=== PATIENT | female | born 1970 | race Caucasian/White ===

== ENCOUNTER → 2016-06-17 | Outpatient (CLI) | payer MEDICARE, MEDICAID ==
[2016-06-17 10:28] LABS: BASO % 0.3 % (0.0-1.0); EOS # 0.1 K/mm3 (0.0-0.50); EOS % 0.7 % (0.0-3.0); LYMPH # 3.5 K/mm3 (1.5-4.5); LYMPH % 21.5 % (24.0-44.0); MEAN CORPUSCULAR HEMOGLOBIN 30.9 pg (27.0-33.0); MEAN CORPUSCULAR HGB CONC 32.5 g/dl (32.0-36.5); MEAN CORPUSCULAR VOLUME 95.3 fl (80.0-96.0); MONO # 0.6 K/mm3 (0.0-0.8); MONO % 3.5 % (0.0-5.0); NEUTROPHILS # 11.7 K/mm3 (1.8-7.7); NEUTROPHILS % 72.5 % (36.0-66.0); RED CELL DISTRIBUTION WIDTH 12.3 % (11.5-14.5); WHITE BLOOD COUNT 16.1 K/mm3 (4.0-10.0)
--- NOTE | 2016-06-17 10:37 | REP ---
Chest x-ray: Two views. History: Acute bronchitis. Comparison study January 13, 2015. Findings: The lungs remain well inflated and clear. Pleural angles are sharp. Heart size is normal. Pulmonary vasculature is not increased. No significant bony abnormality is seen. Pulmonary vasculature is not increased. Impression: Negative chest x-ray. Signed by Jacob Nieves MD 06/17/2016 12:52 P
== END ==
LOC: M LAB 10:00
PROVIDERS: ATTEND Physician Assistant Medical
DX: R41.3 Other amnesia (principal); J20.9 Acute bronchitis, unspecified

== ENCOUNTER → 2016-07-25 | Outpatient (CLI) | payer MEDICARE, MEDICAID ==
[2016-07-25 17:13] LABS: BASO % 0.5 % (0.0-1.0); EOS # 0.1 K/mm3 (0.0-0.50); EOS % 1.1 % (0.0-3.0); LARGE UNSTAINED CELL # 0.2 K/mm3 (0.0-0.4); LARGE UNSTAINED CELL % 1.6 % (0.0-4.0); LYMPH # 2.9 K/mm3 (1.5-4.5); LYMPH % 27.7 % (24.0-44.0); MEAN CORPUSCULAR HEMOGLOBIN 31.4 pg (27.0-33.0); MEAN CORPUSCULAR HGB CONC 32.4 g/dl (32.0-36.5); MEAN CORPUSCULAR VOLUME 96.9 fl (80.0-96.0); MONO # 0.4 K/mm3 (0.0-0.8); NEUTROPHILS # 6.8 K/mm3 (1.8-7.7); NEUTROPHILS % 65.1 % (36.0-66.0); PLATELET COUNT, AUTOMATED 311 k/mm3 (150-450); RED CELL DISTRIBUTION WIDTH 12.5 % (11.5-14.5); WHITE BLOOD COUNT 10.5 K/mm3 (4.0-10.0)
[2016-07-25 18:09] LABS: FOLATE 14.1 NG/ML
[2016-07-25 18:13] LABS: ALBUMIN 3.6 GM/DL (3.2-5.2); ALBUMIN/GLOBULIN RATIO 1.16 (1.00-1.93); BILIRUBIN,TOTAL 0.3 MG/DL (0.2-1.0); CALCIUM LEVEL 8.9 MG/DL (8.5-10.1); CREATININE FOR GFR 1.16 MG/DL (0.55-1.02); GLOMERULAR FILTRATION RATE 53.1 (>58); PHOSPHORUS LEVEL 3.3 MG/DL (2.5-4.9); POTASSIUM SERUM 4.5 MEQ/L (3.5-5.1); TOTAL PROTEIN 6.7 GM/DL (6.4-8.2)
[2016-07-25 21:27] LABS: ERYTHROCYTE SEDIMENTATION RATE 35 mm/hr (0-20)
== END ==
LOC: M SMT 11:13
PROVIDERS: ATTEND Physician Assistant Medical
DX: R41.3 Other amnesia (principal)

== ENCOUNTER → 2016-08-18 | Outpatient (CLI) | payer MEDICARE, MEDICAID ==
[2016-08-18 19:03] LABS: TOTAL PROTEIN 6.6 GM/DL (6.4-8.2)
[2016-08-21 00:06] LABS: Lyme Disease IgG/IgM Antibodie <0.91 ISR (0.00-0.90); Lyme Disease IgM Ab Quantitati <0.80 index (0.00-0.79)
== END ==
LOC: M SMT 12:01
PROVIDERS: ATTEND Physician Assistant Medical
DX: R70.0 Elevated erythrocyte sedimentation rate (principal)

== ENCOUNTER → 2016-11-01 | Outpatient (CLI) | payer MEDICARE, MEDICAID | LOC: M SMT 11:05 | PROVIDERS: ATTEND Physician Assistant Medical | DX: R76.8 Other specified abnormal immunological findings in serum (principal) ==

== ENCOUNTER → 2016-12-05 | Outpatient (CLI) | payer MEDICARE, MEDICAID ==
[~2016-12-05] MED LIST: ASPI81TA85 PO; AZIT-12 PO; BENZ100C5; BREO1INH; DICY20TA11; LIPI20TA PO; LISI-542 PO; LORA10TA2 PO; MELO7.5T7 PO; MONT10TA2 PO; NORT10CA2; OMEP40CA2 PO; PRED20TA PO; PROAAER10; VITA1CAP40; ZITHTAB PO
--- NOTE | 2016-12-05 15:58 | REP ---
HISTORY: COPD. COMPARISON: Multiple, the latest 06/17/2016. The cardiomediastinal silhouette is unchanged. The heart is not enlarged. Subtle opacities have developed in the left lung base. The pleural angles are sharp. There is no change in the osseous structures. IMPRESSION: Subtle left basilar opacities probably representing discoid subsegmental atelectatic change, however, followup to resolution is recommended along with clinical correlation. Signed by Olman Bautista DO 12/06/2016 11:29 A
[2016-12-07 00:07] LABS: Lyme Disease IgG/IgM Antibodie <0.91 ISR (0.00-0.90); Lyme Disease IgM Ab Quantitati <0.80 index (0.00-0.79)
[2016-12-07 10:27] LABS: ALBUMIN % 57.6 % (55.8-66.1)
[2016-12-07 10:28] LABS: ALBUMIN 4.03 GM/DL (3.29-5.55); GAMMA GLOBULIN % 12.8 % (11.1-18.8)
== END ==
LOC: M SMT 08:51
PROVIDERS: ATTEND Physician Assistant Medical
DX: M13.80 Other specified arthritis, unspecified site (principal); J44.9 Chronic obstructive pulmonary disease, unspecified

== ENCOUNTER 2017-01-11 19:39 | Emergency (ER) | payer MEDICARE, MEDICAID ==
[~2017-01-11] VITALS: Ht 165.1 cm; Wt 72.3 kg
[2017-01-11] MEDS ORDERED: PRED20TA PO (19:54)
[2017-01-11] MEDS ORDERED: MONT10TA2 PO (19:54)
[2017-01-11] MEDS ORDERED: PROAAER10 (19:54)
[2017-01-11] MEDS ORDERED: NORT10CA2 (19:54)
[2017-01-11] MEDS ORDERED: DICY20TA11 (19:54)
[2017-01-11] MEDS ORDERED: OMEP40CA2 PO (19:54)
[2017-01-11] MEDS ORDERED: LIPI20TA PO (19:54)
[2017-01-11] MEDS ORDERED: BENZ100C5 (19:54)
[2017-01-11] MEDS ORDERED: LORA10TA2 PO (19:54)
[2017-01-11] MEDS ORDERED: VITA1CAP40 (19:54)
[2017-01-11] MEDS ORDERED: MELO7.5T7 PO (19:54)
[2017-01-11] MEDS ORDERED: BREO1INH (19:54)
[2017-01-11] MEDS ORDERED: LISI-542 PO (19:54)
[2017-01-11] MEDS ORDERED: ASPIRIN 81 MG CHEW TABLET PO ONE (20:45)
[2017-01-11] MEDS ORDERED: NS 1,000 ML IV ONE (20:45)
[2017-01-11] MEDS ORDERED: IPRATROPIUM 0.5MG/ALBUTEROL 2.5MG INH SOL UD 3ML (DUONEB)(J7620) NEB ONE (20:45)
[2017-01-11 20:52] LABS: BASO % 0.5 % (0.0-1.0); EOS # 0.2 K/mm3 (0.0-0.50); EOS % 2.5 % (0.0-3.0); LARGE UNSTAINED CELL # 0.2 K/mm3 (0.0-0.4); LARGE UNSTAINED CELL % 2.5 % (0.0-4.0); LYMPH # 3.9 K/mm3 (1.5-4.5); LYMPH % 45.8 % (24.0-44.0); MEAN CORPUSCULAR HEMOGLOBIN 32.3 pg (27.0-33.0); MEAN CORPUSCULAR HGB CONC 34.5 g/dl (32.0-36.5); MEAN CORPUSCULAR VOLUME 93.6 fl (80.0-96.0); MONO # 0.5 K/mm3 (0.0-0.8); MONO % 5.9 % (0.0-5.0); NEUTROPHILS # 3.7 K/mm3 (1.8-7.7); NEUTROPHILS % 42.7 % (36.0-66.0); PLATELET COUNT, AUTOMATED 372 k/mm3 (150-450); WHITE BLOOD COUNT 8.6 K/mm3 (4.0-10.0)
[2017-01-11 20:53] LABS: VENOUS BASE EXCESS -0.9 (-2.0-2.0); VENOUS O2 SATURATION 74.3 % (60.0-80.0); VENOUS PARTIAL PRESSURE O2 36.7 mmHg (30.0-50.0); VENOUS STANDARD HCO3 23.2 MEQ/L; VENOUS TOTAL CO2 25.5 MEQ/L (24.0-28.0)
[2017-01-11 21:07] LABS: ANION GAP 10 MEQ/L (8-16); BLOOD UREA NITROGEN 10 MG/DL (7-18); CALCIUM LEVEL 9.2 MG/DL (8.5-10.1); CARBON DIOXIDE LEVEL 25 MEQ/L (21-32); CHLORIDE LEVEL 109 MEQ/L (98-107); GLOMERULAR FILTRATION RATE 56.4 (>58); GLUCOSE, FASTING 104 MG/DL (70-105); SODIUM LEVEL 144 MEQ/L (136-145)
--- NOTE | 2017-01-11 21:45 | ECGEPIP ---
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
[2017-01-11 23:44] VITALS: BP 133/64
[2017-01-11] MEDS ORDERED: AZITHROMYCIN 250 MG TAB PO ONE (23:45)
[2017-01-11] MEDS ORDERED: AZIT-12 PO (23:45)
[2017-01-12] MEDS ORDERED: ZITHTAB PO (00:09)
--- NOTE | 2017-01-12 08:04 | REP ---
Clinical: Chest pain . Comparison: 12/05/2016 . Technique: PA and lateral. Findings: The mediastinum and cardiac silhouette are normal. The lung bernabe are clear and without acute consolidation, effusion, or pneumothorax. The skeletal structures are intact and normal. Impression: 1. No acute cardiopulmonary process. Signed by Link Law MD 01/12/2017 07:55 A
== END 2017-01-12 00:11 | disposition home or self-care (01) ==
LOC: M ED 19:39
DX: J40 Bronchitis, not specified as acute or chronic (principal); I10 Essential (primary) hypertension; J44.9 Chronic obstructive pulmonary disease, unspecified; K21.9 Gastro-esophageal reflux disease without esophagitis; G43.909 Migraine, unspecified, not intractable, without status migrainosus; Z79.899 Other long term (current) drug therapy; Z79.82 Long term (current) use of aspirin; Z79.51 Long term (current) use of inhaled steroids; F17.210 Nicotine dependence, cigarettes, uncomplicated

== ENCOUNTER 2017-01-30 09:10 | Emergency (ER) | payer MEDICARE, MEDICAID ==
[~2017-01-30] VITALS: Ht 165.1 cm; Wt 71.2 kg
[~2017-01-30 09:10] MED LIST changes: -ASPI81TA85 PO
[2017-01-30 10:01] LABS: INR 1.08
[2017-01-30] MEDS ORDERED: PERCOCET 5MG/325MG TAB PO ONE (10:15)
[2017-01-30] MEDS ORDERED: ASPIRIN 81 MG CHEW TABLET PO ONE (10:15)
--- NOTE | 2017-01-30 10:18 | REP ---
PORTABLE CHEST, SINGLE VIEW: COMPARISON: 01/11/2017. There is no evidence of acute infiltrate. No pleural effusion is seen. The heart is normal in size. The mediastinal silhouette is unremarkable. The visualized osseous structures are intact. IMPRESSION: No acute pulmonary disease. Signed by Valentin Lozano MD 01/30/2017 05:39 P
[2017-01-30 10:21] LABS: ALBUMIN 3.3 GM/DL (3.2-5.2); ALBUMIN/GLOBULIN RATIO 0.85 (1.00-1.93); ALKALINE PHOSPHATASE 76 U/L (45-117); ALT/SGPT 16 U/L (12-78); ANION GAP 7 MEQ/L (8-16); AST/SGOT 13 U/L (15-37); BILIRUBIN,DIRECT 0.1 MG/DL (0.0-0.2); BILIRUBIN,TOTAL 0.4 MG/DL (0.2-1.0); BLOOD UREA NITROGEN 8 MG/DL (7-18); CALCIUM LEVEL 8.4 MG/DL (8.5-10.1); CARBON DIOXIDE LEVEL 27 MEQ/L (21-32); CHLORIDE LEVEL 107 MEQ/L (98-107); CREATININE FOR GFR 1.08 MG/DL (0.55-1.02); GLOMERULAR FILTRATION RATE 57.6 (>58); GLUCOSE, FASTING 97 MG/DL (70-105); POTASSIUM SERUM 3.7 MEQ/L (3.5-5.1); SODIUM LEVEL 141 MEQ/L (136-145); TOTAL PROTEIN 7.2 GM/DL (6.4-8.2)
[2017-01-30 10:30] LABS: BASO % 0.3 % (0.0-1.0); EOS # 0.1 10^3/uL (0.0-0.50); EOS % 0.6 % (0.0-3.0); LYMPH # 3.2 10^3/uL (1.5-4.5); LYMPH % 21.1 % (24.0-44.0); MEAN CORPUSCULAR HEMOGLOBIN 31.4 pg (27.0-33.0); MEAN CORPUSCULAR VOLUME 95.2 fl (80.0-96.0); MONO % 6.3 % (0.0-5.0); NEUTROPHILS # 10.9 10^3/uL (1.8-7.7); NEUTROPHILS % 71.4 % (36.0-66.0); PLATELET COUNT, AUTOMATED 316 10^3/uL (150-450); RED CELL DISTRIBUTION WIDTH 12.2 % (11.5-14.5); WHITE BLOOD COUNT 15.2 10^3/uL (4.0-10.0)
[2017-01-30] MEDS ORDERED: ASPI81TA85 PO (12:49)
[2017-01-30 13:02] VITALS: BP 151/85
--- NOTE | 2017-01-30 18:06 | ECGEPIP ---
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
== END 2017-01-30 13:09 | disposition home or self-care (01) ==
LOC: M ED 09:10
DX: R07.89 Other chest pain (principal); I10 Essential (primary) hypertension; E78.5 Hyperlipidemia, unspecified; F33.9 Major depressive disorder, recurrent, unspecified; F17.210 Nicotine dependence, cigarettes, uncomplicated; Z79.899 Other long term (current) drug therapy; Z79.51 Long term (current) use of inhaled steroids; Z79.52 Long term (current) use of systemic steroids; Z82.49 Family history of ischemic heart disease and other diseases of the circulatory system

== ENCOUNTER → 2017-02-07 | Outpatient (CLI) | payer MEDICARE, MEDICAID ==
[~2017-02-07] MED LIST changes: +ASPI81TA85 PO; +ISOVUE-370 76% 100ML VIAL (Q9967) As Ordered ONE
--- NOTE | 2017-02-07 17:50 | REP ---
CT of the chest with IV contrast: Comparison is 10/15/2012. There are no infiltrates or effusions. There are no masses or nodules. There are occasional subpleural bulla as previously. There is no mediastinal adenopathy. On the comparison study there was a nodule posteriorly in the left thyroid lobe and measured 16 mm. This nodule today measures 6 mm. There is no mediastinal or hilar the. No axillary adenopathy. The thoracic aorta is unremarkable. Cardiac size is normal. No pericardial effusion. In the upper abdomen there is a hypodense lesion in the left kidney measuring 2.4 cm. This measured 1.6 cm previously. This is likely a renal cyst, however, confirmation by ultrasound would be worthwhile for more assurance. On the comparison study there was a 2.1 cm hepatic cyst. This is no longer identified. Impression: There are scattered subpleural bulla. There are no masses, nodules, infiltrates, effusions or adenopathy. There is a left lobe thyroid nodule has decreased in size. There is a left renal lesion that has increased in size. This is likely a cyst, however, confirmation by ultrasound would be worthwhile. Signed by Valentin Durand MD 02/07/2017 05:42 P
== END ==
LOC: M RAD 16:42
PROVIDERS: ATTEND Physician Assistant Medical
DX: R05 Cough (principal); R06.02 Shortness of breath
CPT/HCPCS: 71260; Q9967

== ENCOUNTER 2017-04-10 09:27 | Emergency (ER) | payer OTHER, MEDICARE, MEDICAID ==
[~2017-04-10] VITALS: Ht 165.1 cm; Wt 73.2 kg
[~2017-04-10 09:27] MED LIST changes: -ISOVUE-370 76% 100ML VIAL (Q9967) As Ordered ONE
[2017-04-10] MEDS ORDERED: ACETAMINOPHEN TAB 650MG DOSE (2X325MG) PO ONE (11:15)
[2017-04-10 12:35] VITALS: BP 134/77
--- NOTE | 2017-04-10 18:25 | REP ---
Right shoulder, complete: 04/10/2017. Clinical history: Trauma. Three views are provided. AC joint intact. There is no fracture, clavicle, ribs, scapula or humerus. No humeral subluxation or dislocation. The glenoid has abnormal soft-tissue calcification. Impression: 1. Negative for fracture, subluxation or other acute finding about the shoulder. Signed by Roger Toledo MD 04/11/2017 08:20 P
== END 2017-04-10 12:35 | disposition home or self-care (01) ==
LOC: M ED 09:27
DX: M25.511 Pain in right shoulder (principal); I12.9 Hypertensive chronic kidney disease with stage 1 through stage 4 chronic kidney disease, or unspecified chronic kidney disease; E78.5 Hyperlipidemia, unspecified; J44.9 Chronic obstructive pulmonary disease, unspecified; N18.9 Chronic kidney disease, unspecified; F17.210 Nicotine dependence, cigarettes, uncomplicated; Z79.899 Other long term (current) drug therapy; Z79.82 Long term (current) use of aspirin

== ENCOUNTER → 2017-06-28 | Outpatient (REF) | payer MEDICARE, MEDICAID | LOC: M LAB REF 16:58 | DX: R10.31 Right lower quadrant pain (principal) ==

== ENCOUNTER → 2017-06-29 | Outpatient (CLI) | payer MEDICARE, MEDICAID ==
[~2017-06-29] MED LIST changes: -ASPI81TA85 PO; -AZIT-12 PO; -BENZ100C5; -BREO1INH; -DICY20TA11; +GASTROGRAFIN SOLUTION 30ML (Q9963) As Ordered; +ISOVUE-370 76% 100ML VIAL (Q9967) As Ordered; -LIPI20TA PO; -LISI-542 PO; -LORA10TA2 PO; -MELO7.5T7 PO; -MONT10TA2 PO; -NORT10CA2; -OMEP40CA2 PO; -PRED20TA PO; -PROAAER10; -VITA1CAP40; -ZITHTAB PO
== END ==
LOC: M RAD 07:42
DX: N18.3 Chronic kidney disease, stage 3 (moderate) (principal); R10.31 Right lower quadrant pain; D72.829 Elevated white blood cell count, unspecified; N20.0 Calculus of kidney; N28.1 Cyst of kidney, acquired; Z96.641 Presence of right artificial hip joint
CPT/HCPCS: Q9963

== ENCOUNTER 2017-07-12 10:52 | Emergency (ER) | payer OTHER, MEDICARE, MEDICAID | END 2017-07-12 13:32 | disposition home or self-care (01) | LOC: M ED 10:52 | DX: S46.911A Strain of unspecified muscle, fascia and tendon at shoulder and upper arm level, right arm, initial encounter (principal); X50.0XXA Overexertion from strenuous movement or load, initial encounter; Y92.199 Unspecified place in other specified residential institution as the place of occurrence of the external cause; Y93.F9 Activity, other caregiving; Y99.0 Civilian activity done for income or pay; F17.210 Nicotine dependence, cigarettes, uncomplicated; Z79.82 Long term (current) use of aspirin; Z79.899 Other long term (current) drug therapy | CPT/HCPCS: 73030 ==

== ENCOUNTER → 2017-08-01 | Outpatient (REF) | payer MEDICARE, MEDICAID ==
[2017-08-01 14:23] LABS: APPEARANCE, URINE HAZY (CLEAR); BACTERIA, URINE AUTO 1+ (NEGATIVE); BILIRUBIN, URINE AUTO NEGATIVE (NEGATIVE); BLOOD, URINE BLOOD NEGATIVE (NEGATIVE); COLOR, URINE YELLOW (YELLOW); GLUCOSE, URINE (UA) AUTO NEGATIVE (NEGATIVE); KETONE, URINE AUTO NEGATIVE (NEGATIVE); LEUKOCYTE ESTERASE, URINE AUTO NEGATIVE (NEGATIVE); MUCUS, URINE SMALL (NEGATIVE); NITRITE, URINE AUTO NEGATIVE (NEGATIVE); PROTEIN, URINE AUTO NEGATIVE (NEGATIVE); RBC, URINE AUTO 0 /HPF (0-3); SPECIFIC GRAVITY URINE AUTO 1.011 (1.002-1.035); SQUAMOUS EPITHELIAL CELL UR AU 6 /HPF (0-6); UROBILINOGEN, URINE AUTO 0.2 mg/dL (0.0-2.0); WBC, URINE AUTO 4 /HPF (0-3)
[2017-08-01 16:13] LABS: CHLAMYDIA DNA AMPLIFICATION NEGATIVE (NEGATIVE); GC DNA AMPLIFICATION NEGATIVE (NEGATIVE)
[2017-08-01 18:34] LABS: BASO # 0.1 10^3/uL (0.0-0.2); BASO % 0.4 % (0.0-1.0); EOS # 0.2 10^3/uL (0.0-0.50); EOS % 1.7 % (0.0-3.0); HEMATOCRIT 40.7 % (36.0-47.0); HEMOGLOBIN 13.2 g/dl (12.0-16.0); IMMATURE GRANULOCYTE % 0.3 % (0-3.0); LYMPH # 2.8 10^3/uL (1.5-4.5); LYMPH % 23.7 % (24.0-44.0); MEAN CORPUSCULAR HEMOGLOBIN 30.6 pg (27.0-33.0); MEAN CORPUSCULAR HGB CONC 32.4 g/dl (32.0-36.5); MEAN CORPUSCULAR VOLUME 94.4 fl (80.0-96.0); MONO # 0.8 10^3/uL (0.0-0.8); MONO % 6.4 % (0.0-5.0); NEUTROPHILS % 67.5 % (36.0-66.0); PLATELET COUNT, AUTOMATED 314 10^3/uL (150-450); RED BLOOD COUNT 4.31 10^6/uL (4.00-5.40); RED CELL DISTRIBUTION WIDTH 12.7 % (11.5-14.5); WHITE BLOOD COUNT 11.9 10^3/uL (4.0-10.0)
[2017-08-01 18:50] LABS: TOTAL 25(OH) VITAMIN D 20.4 NG/ML (30.0-100.0)
[2017-08-01 18:51] LABS: ALBUMIN 3.6 GM/DL (3.2-5.2); ALBUMIN/GLOBULIN RATIO 0.97 (1.00-1.93); ALKALINE PHOSPHATASE 84 U/L (45-117); ALT/SGPT 15 U/L (12-78); ANION GAP 4 MEQ/L (8-16); AST/SGOT 14 U/L (7-37); BILIRUBIN,TOTAL 0.3 MG/DL (0.2-1.0); BLOOD UREA NITROGEN 13 MG/DL (7-18); CALCIUM LEVEL 8.8 MG/DL (8.5-10.1); CARBON DIOXIDE LEVEL 29 MEQ/L (21-32); CHLORIDE LEVEL 110 MEQ/L (98-107); CHOLESTEROL LEVEL 157 MG/DL (<200); CHOLESTEROL RISK RATIO 4.906 (<5); CREATININE FOR GFR 1.14 MG/DL (0.55-1.30); GLOMERULAR FILTRATION RATE 53.9 (>58); GLUCOSE, FASTING 87 MG/DL (70-100); HDL CHOLESTEROL 32 MG/DL (>40); NON-HDL-C 125 MG/DL; POTASSIUM SERUM 4.4 MEQ/L (3.5-5.1); SODIUM LEVEL 143 MEQ/L (136-145); TOTAL PROTEIN 7.3 GM/DL (6.4-8.2); TRIGLYCERIDES LEVEL 165 MG/DL (<150)
[2017-08-01 19:10] LABS: ESTIMATED AVERAGE GLUCOSE 114 MG/DL (60-110); HEMOGLOBIN A1c 5.6 %
[2017-08-02 11:24] LABS: HIV 1&2 SCREEN CENTAUR NEGATIVE (NEGATIVE)
== END ==
LOC: M LAB REF 13:23
DX: Z11.3 Encounter for screening for infections with a predominantly sexual mode of transmission (principal); E78.5 Hyperlipidemia, unspecified; E04.1 Nontoxic single thyroid nodule; D72.829 Elevated white blood cell count, unspecified; F19.21 Other psychoactive substance dependence, in remission; D55.9 Anemia due to enzyme disorder, unspecified; N18.9 Chronic kidney disease, unspecified
CPT/HCPCS: 84443

== ENCOUNTER → 2017-08-24 | Outpatient (CLI) | payer MEDICAID, MEDICARE ==
[2017-08-24 10:59] LABS: ALBUMIN 3.6 GM/DL (3.2-5.2); ANION GAP 5 MEQ/L (8-16); BLOOD UREA NITROGEN 11 MG/DL (7-18); CARBON DIOXIDE LEVEL 28 MEQ/L (21-32); CHLORIDE LEVEL 110 MEQ/L (98-107); GLOMERULAR FILTRATION RATE 50.8 (>58); GLUCOSE, FASTING 133 MG/DL (70-100); PHOSPHORUS LEVEL 3.2 MG/DL (2.5-4.9); POTASSIUM SERUM 4.2 MEQ/L (3.5-5.1); SODIUM LEVEL 143 MEQ/L (136-145)
== END ==
LOC: M SMT 09:31
DX: R10.9 Unspecified abdominal pain (principal)
CPT/HCPCS: 80069

== ENCOUNTER → 2017-08-29 | Outpatient (REF) | payer MEDICAID, MEDICARE ==
[2017-08-31 14:13] LABS: HPV HYBRID CAPTURE II Negative (Negative)
== END ==
LOC: M LAB REF 18:01
DX: Z12.4 Encounter for screening for malignant neoplasm of cervix (principal)
CPT/HCPCS: G0123

== ENCOUNTER → 2018-01-17 | Outpatient (REF) | payer MEDICARE ==
[2018-01-17 19:37] LABS: ALBUMIN 3.4 GM/DL (3.2-5.2); ALBUMIN/GLOBULIN RATIO 1.03 (1.00-1.93); ALKALINE PHOSPHATASE 72 U/L (45-117); ALT/SGPT 16 U/L (12-78); ANION GAP 6 MEQ/L (8-16); AST/SGOT 13 U/L (7-37); BILIRUBIN,TOTAL 0.3 MG/DL (0.2-1.0); BLOOD UREA NITROGEN 11 MG/DL (7-18); CALCIUM LEVEL 8.8 MG/DL (8.5-10.1); CARBON DIOXIDE LEVEL 26 MEQ/L (21-32); CHLORIDE LEVEL 110 MEQ/L (98-107); CREATININE FOR GFR 1.14 MG/DL (0.55-1.30); GLOMERULAR FILTRATION RATE 53.9 (>58); GLUCOSE, FASTING 104 MG/DL (70-100); SODIUM LEVEL 142 MEQ/L (136-145); TOTAL PROTEIN 6.7 GM/DL (6.4-8.2)
== END ==
LOC: M LAB REF 17:18
DX: N18.9 Chronic kidney disease, unspecified (principal)
CPT/HCPCS: 80053

== ENCOUNTER → 2018-01-18 | Outpatient (CLI) | payer MEDICARE ==
[~2018-01-18] MED LIST changes: -GASTROGRAFIN SOLUTION 30ML (Q9963) As Ordered
== END ==
LOC: M RAD 07:52
DX: R05 Cough (principal); J44.9 Chronic obstructive pulmonary disease, unspecified; Z72.0 Tobacco use
CPT/HCPCS: Q9967

== ENCOUNTER 2018-03-18 20:31 | Emergency (ER) | payer MEDICARE, MEDICAID ==
[2018-03-18] MEDS: NS 1,000 ML IV (21:21)
[2018-03-18] MEDS: ONDANSETRON 4MG/2ML VIAL (J2405) IV (21:22)
[2018-03-18] MEDS: MORPHINE 4 MG/ML 1ML VIAL/SYRINGE (J2270) IV (21:22)
[2018-03-18 21:26] LABS: BASO % 0.1 % (0.0-1.0); EOS % 0.1 % (0.0-3.0); HEMATOCRIT 42.4 % (36.0-47.0); IMMATURE GRANULOCYTE % 0.4 % (0-3.0); LYMPH # 3.9 10^3/uL (1.5-4.5); LYMPH % 24.9 % (24.0-44.0); MEAN CORPUSCULAR HEMOGLOBIN 31.3 pg (27.0-33.0); MEAN CORPUSCULAR VOLUME 94.6 fl (80.0-96.0); MONO # 1.8 10^3/uL (0.0-0.8); MONO % 11.4 % (0.0-5.0); NEUTROPHILS # 9.9 10^3/uL (1.8-7.7); NEUTROPHILS % 63.1 % (36.0-66.0); PLATELET COUNT, AUTOMATED 234 10^3/uL (150-450); RED BLOOD COUNT 4.48 10^6/uL (4.00-5.40); RED CELL DISTRIBUTION WIDTH 12.7 % (11.5-14.5); WHITE BLOOD COUNT 15.7 10^3/uL (4.0-10.0)
[2018-03-18 21:45] LABS: ALBUMIN 2.9 GM/DL (3.2-5.2); ALBUMIN/GLOBULIN RATIO 0.74 (1.00-1.93); ALKALINE PHOSPHATASE 64 U/L (45-117); ALT/SGPT 17 U/L (12-78); ANION GAP 9 MEQ/L (8-16); AST/SGOT 26 U/L (7-37); BILIRUBIN,DIRECT 0.1 MG/DL (0.0-0.2); BILIRUBIN,TOTAL 0.4 MG/DL (0.2-1.0); BLOOD UREA NITROGEN 11 MG/DL (7-18); CALCIUM LEVEL 8.4 MG/DL (8.5-10.1); CARBON DIOXIDE LEVEL 24 MEQ/L (21-32); CHLORIDE LEVEL 105 MEQ/L (98-107); CREATININE FOR GFR 1.28 MG/DL (0.55-1.30); GLOMERULAR FILTRATION RATE 47.2 (>58); GLUCOSE, FASTING 107 MG/DL (70-100); LIPASE 202 U/L (73-393); POTASSIUM SERUM 4.1 MEQ/L (3.5-5.1); SODIUM LEVEL 138 MEQ/L (136-145); TOTAL PROTEIN 6.8 GM/DL (6.4-8.2)
[2018-03-18 22:16] LABS: KETONE, URINE AUTO RFX NEGATIVE (NEGATIVE); LEUKOCYTE ESTERASE UR AUTO RFX 2+ (NEGATIVE); NITRITE, URINE AUTO RFX NEGATIVE (NEGATIVE); RBC, URINE AUTO RFX TNTC /HPF (0-3); SPECIFIC GRAVITY UR AUTO RFX 1.011 (1.002-1.035); SQUAM EPITHELIAL CELL UR AURFX 11 /HPF (0-6); WBC, URINE AUTO RFX TNTC /HPF (0-3)
[2018-03-19] MEDS: OXYCODONE/APAP 5MG/325MG(BULK FOR ED) 1 TABLET PO (00:39)
[2018-03-19] MEDS: CIPROFLOXACIN 500 MG TAB PO (00:39)
== END 2018-03-19 00:43 | disposition home or self-care (01) ==
LOC: M ED 03-19 00:43
DX: N10 Acute pyelonephritis (principal); J44.9 Chronic obstructive pulmonary disease, unspecified; Z87.440 Personal history of urinary (tract) infections; Z79.899 Other long term (current) drug therapy; F17.210 Nicotine dependence, cigarettes, uncomplicated
CPT/HCPCS: J2270

== ENCOUNTER → 2018-07-12 | Outpatient (REF) | payer MEDICARE, MEDICAID ==
[~2018-07-12] MED LIST changes: +ADVI200T PO; +ASPI1TAB PO; +ASPI81TA85 PO; +ATOR1TAB21 PO; +AZIT-12 PO; +BENZ-18; +BREO1INH; +CIPR-249 PO; +DICY20TA11 PO; +DRIS50003 PO; -ISOVUE-370 76% 100ML VIAL (Q9967) As Ordered; +LIPI20TA PO; +LISI-542 PO; +LORA-243 PO; +MELO7.5T7 PO; +MONT10TA2 PO; +NORT10CA2 PO; +OMEP40CA2 PO; +PRED20TA PO; +PROAAER10; +VITA50005; +ZITHTAB PO; +ZOFR4TAB14 PO
[2018-07-12 14:12] LABS: CREATININE FOR GFR 1.2 MG/DL (0.55-1.30); GLOMERULAR FILTRATION RATE 50.6 (>51); POTASSIUM SERUM 4.1 MEQ/L (3.5-5.1)
== END ==
LOC: M LAB REF 12:53
PROVIDERS: ATTEND Internal Medicine
DX: H53.9 Unspecified visual disturbance (principal)

== ENCOUNTER → 2018-07-17 | Outpatient (CLI) | payer MEDICARE, MEDICAID ==
[~2018-07-17] MED LIST changes: +PROHANCE 279.3MG/ML 5ML VIAL (A9576) As Ordered ONE
--- NOTE | 2018-07-18 08:36 | REP ---
MRA BRAIN WITHOUT CONTRAST: HISTORY: Visual disturbance. 3D [id number] MR angiography was performed at the level of the [place] of [place]. The examination is limited secondary to motion. There is a possible 1.5 mm anterior communicating artery aneurysm. There is no other aneurysm, or arteriovenous malformation. There are no atherosclerotic lesions. The P1 segment of the right posterior cerebral artery is hypoplastic. Major intracranial vessels are patent. The right vertebral artery terminates in the right posterior inferior cerebellar artery. The left vertebral artery is dominant. IMPRESSION: Limited examination demonstrating a possible 1.5 mm anterior communicating artery aneurysm. A repeat examination may be helpful for further examination. Electronically Signed by Saturnino Fields MD 07/18/2018 08:49 A
--- NOTE | 2018-07-18 09:09 | REP ---
MR ORBITS WITHOUT AND WITH CONTRAST: HISTORY: Visual disturbance. CONTRAST: ProHance 6 mL. The examination is limited secondary to motion. The globes, optic nerves, and rectus muscles are normal in appearance. There is no orbital lesion. There is no abnormal enhancement. The pituitary gland, cavernous sinuses, and optic chiasm are normal in appearance. Several punctate areas of increased signal intensity on T2 weighted images are present in the periventricular an subcortical white matter. This represents small vessel ischemic disease. There is no intraparenchymal hemorrhage, mass or midline shift. The ventricular system is normal in appearance. There is no extracerebral collection. Mucosal thickening is present in the mastoid air cells, ethmoid and maxillary sinuses. IMPRESSION:1. Limited examination demonstrating no orbital lesion. 2. Minimal small vessel ischemic disease. Electronically Signed by Saturnino Fields MD 07/18/2018 09:14 A
== END ==
LOC: M RAD 16:38
PROVIDERS: ATTEND Family Medicine
DX: H53.9 Unspecified visual disturbance (principal)
CPT/HCPCS: 70540; 70544; A9576

== ENCOUNTER → 2018-07-24 | Outpatient (REF) | payer MEDICARE, MEDICAID ==
[~2018-07-24] MED LIST changes: -PROHANCE 279.3MG/ML 5ML VIAL (A9576) As Ordered ONE
[2018-07-24 11:58] LABS: BASO % 0.3 % (0.0-1.0); EOS # 0.1 10^3/uL (0.0-0.50); EOS % 0.6 % (0.0-3.0); HEMATOCRIT 43.1 % (36.0-47.0); HEMOGLOBIN 14.2 g/dl (12.0-15.5); LYMPH # 4.4 10^3/uL (1.5-4.5); LYMPH % 29.6 % (24.0-44.0); MEAN CORPUSCULAR HEMOGLOBIN 32.2 pg (27.0-33.0); MEAN CORPUSCULAR HGB CONC 32.9 g/dl (32.0-36.5); MEAN CORPUSCULAR VOLUME 97.7 fl (80.0-96.0); MONO # 0.6 10^3/uL (0.0-0.8); MONO % 4.3 % (0.0-5.0); NEUTROPHILS # 9.6 10^3/uL (1.8-7.7); NEUTROPHILS % 64.9 % (36.0-66.0); PLATELET COUNT, AUTOMATED 305 10^3/uL (150-450); RED BLOOD COUNT 4.41 10^6/uL (4.00-5.40); WHITE BLOOD COUNT 14.8 10^3/uL (4.0-10.0)
[2018-07-24 12:08] LABS: ALBUMIN 3.4 GM/DL (3.2-5.2); BILIRUBIN,TOTAL 0.4 MG/DL (0.2-1.0); CALCIUM LEVEL 8.8 MG/DL (8.5-10.1); CHOLESTEROL RISK RATIO 6.166 (<5); CREATININE FOR GFR 1.19 MG/DL (0.55-1.30); FREE T4 1.24 NG/DL (0.76-1.46); GLOMERULAR FILTRATION RATE 51.1 (>51); THYROID STIMULATING HORMONE 1.7 uIU/ML (0.358-3.740); TOTAL PROTEIN 6.9 GM/DL (6.4-8.2)
[2018-07-24 12:10] LABS: INR 1.08; PROTHROMBIN TIME 14.1 SECONDS (12.1-14.4); TOTAL 25(OH) VITAMIN D 20.4 NG/ML (30.0-100.0)
[2018-07-24 12:11] LABS: PARTIAL THROMBOPLASTIN TIME 36.5 SECONDS (25.4-37.6)
[2018-07-24 12:26] LABS: APPEARANCE, URINE HAZY (CLEAR); BACTERIA, URINE AUTO NEGATIVE (NEGATIVE); BILIRUBIN, URINE AUTO NEGATIVE (NEGATIVE); BLOOD, URINE BLOOD NEGATIVE (NEGATIVE); COLOR, URINE YELLOW (YELLOW); GLUCOSE, URINE (UA) AUTO NEGATIVE (NEGATIVE); KETONE, URINE AUTO NEGATIVE (NEGATIVE); LEUKOCYTE ESTERASE, URINE AUTO TRACE (NEGATIVE); NITRITE, URINE AUTO NEGATIVE (NEGATIVE); PROTEIN, URINE AUTO NEGATIVE (NEGATIVE); RBC, URINE AUTO 1 /HPF (0-3); SPECIFIC GRAVITY URINE AUTO 1.013 (1.002-1.035); SQUAMOUS EPITHELIAL CELL UR AU 4 /HPF (0-6); WBC, URINE AUTO 3 /HPF (0-3)
[2018-07-24 13:38] LABS: HEMOGLOBIN A1c 5.5 %
[2018-07-26 00:08] LABS: Lyme Disease IgG/IgM Antibodie <0.91 ISR (0.00-0.90); Lyme Disease IgM Ab Quantitati <0.80 index (0.00-0.79)
== END ==
LOC: M LAB REF 11:32
PROVIDERS: ATTEND Family Medicine
DX: Z00.01 Encounter for general adult medical examination with abnormal findings (principal); Z13.228 Encounter for screening for other metabolic disorders; I67.1 Cerebral aneurysm, nonruptured; Z79.899 Other long term (current) drug therapy

== ENCOUNTER → 2018-08-06 | Outpatient (CLI) | payer MEDICARE, MEDICAID ==
--- NOTE | 2018-08-06 09:28 | REP ---
MR BRAIN WITHOUT CONTRAST: HISTORY: Aneurysm. COMPARISON: 07/17/2018. Several punctate areas of increased signal intensity on T2-weighted images are present in the periventricular and subcortical white matter. This represents small vessel ischemic disease. There is no intraparenchymal hemorrhage, infarct, mass, or midline shift. The ventricular system is normal in appearance. There is no extracerebral collection. Mucosal thickening is present in the mastoid air cells, ethmoid, and left maxillary sinuses. IMPRESSION: Minimal small vessel ischemic disease. Electronically Signed by Saturnino Fields MD 08/06/2018 09:50 A
== END ==
LOC: M RAD 07:49
PROVIDERS: ATTEND Family Medicine
DX: I67.82 Cerebral ischemia (principal); H53.9 Unspecified visual disturbance

== ENCOUNTER → 2018-11-29 | Outpatient (REF) | payer MEDICARE, MEDICAID ==
[~2018-11-29] MED LIST changes: -ASPI1TAB PO; +ASPI81TA26 PO
[2018-11-29 18:27] LABS: BASO % 0.2 % (0.0-1.0); EOS % 0.2 % (0.0-3.0); HEMATOCRIT 39.8 % (36.0-47.0); HEMOGLOBIN 13.3 g/dl (12.0-15.5); LYMPH # 4.5 10^3/uL (1.5-4.5); LYMPH % 32.2 % (24.0-44.0); MEAN CORPUSCULAR HEMOGLOBIN 31.6 pg (27.0-33.0); MEAN CORPUSCULAR HGB CONC 33.4 g/dl (32.0-36.5); MEAN CORPUSCULAR VOLUME 94.5 fl (80.0-96.0); MONO % 6.8 % (0.0-5.0); NEUTROPHILS # 8.4 10^3/uL (1.8-7.7); NEUTROPHILS % 60.3 % (36.0-66.0); PLATELET COUNT, AUTOMATED 288 10^3/uL (150-450); RED BLOOD COUNT 4.21 10^6/uL (4.00-5.40); WHITE BLOOD COUNT 13.9 10^3/uL (4.0-10.0)
[2018-11-29 18:40] LABS: ALBUMIN 3.6 GM/DL (3.2-5.2); BILIRUBIN,TOTAL 0.6 MG/DL (0.2-1.0); CALCIUM LEVEL 9.6 MG/DL (8.5-10.1); CREATININE FOR GFR 1.12 MG/DL (0.55-1.30); FREE T4 1.34 NG/DL (0.76-1.46); GLOMERULAR FILTRATION RATE 54.8 (>51); POTASSIUM SERUM 3.8 MEQ/L (3.5-5.1); THYROID STIMULATING HORMONE 1.56 uIU/ML (0.358-3.740); TOTAL PROTEIN 7.1 GM/DL (6.4-8.2)
== END ==
LOC: M LAB REF 17:29
PROVIDERS: ATTEND Nurse Practitioner Adult Health
DX: Z13.9 Encounter for screening, unspecified (principal); Z79.899 Other long term (current) drug therapy

== ENCOUNTER → 2018-12-27 | Outpatient (REF) | payer MEDICARE, MEDICAID ==
[~2018-12-27] MED LIST changes: +ALBU0.63 INH; +LEXA1TAB PO; +LOSA25TA14 PO; +MOBI4TAB PO; -OMEP40CA2 PO; +OMEP40CA97 PO; +PROV108A INH; +SYMB16INH INH; +VENTAER INH
[2018-12-27 19:16] LABS: ALBUMIN 3.2 GM/DL (3.2-5.2); ALT/SGPT 10 U/L (12-78); BILIRUBIN,DIRECT < 0.1 MG/DL (0.0-0.2); BILIRUBIN,TOTAL 0.3 MG/DL (0.2-1.0); TOTAL PROTEIN 6.2 GM/DL (6.4-8.2)
[2018-12-28 10:20] LABS: VITAMIN B12 LEVEL 550 PG/ML (247-911)
[2018-12-28 10:28] LABS: HEPATITIS B SURFACE ANTIGEN NEGATIVE (NEGATIVE)
[2018-12-28 10:55] LABS: HEPATITIS B CORE ANTIBODY IGM NEGATIVE (NEGATIVE)
[2018-12-28 10:58] LABS: HEPATITIS A ANTIBODY IGM NEGATIVE (NEGATIVE)
== END ==
LOC: M LAB REF 17:17
PROVIDERS: ATTEND Nurse Practitioner Family
DX: R16.0 Hepatomegaly, not elsewhere classified (principal); R53.83 Other fatigue

== ENCOUNTER → 2019-01-01 | Outpatient (CLI) | payer MEDICARE, MEDICAID ==
[~2019-01-01] MED LIST changes: -ALBU0.63 INH; -LEXA1TAB PO; -LOSA25TA14 PO; -MOBI4TAB PO; +OMEP40CA2 PO; -OMEP40CA97 PO; -PROV108A INH; -SYMB16INH INH; -VENTAER INH
--- NOTE | 2019-01-01 15:45 | REP ---
Renal ultrasound for chronic renal disease, stage III: The kidneys are normal size. The patient has a known horseshoe kidney. The right kidney measures 11.9 x 4.0 x 4.4 cm. The left kidney measures 11.1 x 3.5 x 3.7 cm. Renal cortical echogenicity is normal bilaterally. There is no hydronephrosis. There are at least to small echogenic foci in the right kidney measuring 3 mm of 4 mm, likely small renal calculi. No left renal calculi are identified. There is a right renal lower pole 1.6 cm Bosniak type 1 cyst. There is a left renal upper pole 0.8 cm Bosniak type 1 exophytic cyst. No solid renal masses are identified. Impression: Horseshoe kidney. Nonobstructive calculi in the right moiety. No hydronephrosis. There is a single simple cyst in each kidney. No solid renal masses. Electronically Signed by Valentin Durand MD 01/01/2019 03:37 P
--- NOTE | 2019-01-01 15:46 | REP ---
Bladder ultrasound: The bladder is adequately distended. There are no bladder wall polyps or masses. With color Doppler assessment there are bilateral ureteral jets. Impression: Essentially negative bladder ultrasound. Electronically Signed by Valentin Durand MD 01/01/2019 03:37 P
== END ==
LOC: M RAD 12:47
PROVIDERS: ATTEND Nurse Practitioner Family
DX: Q63.1 Lobulated, fused and horseshoe kidney (principal); Q61.02 Congenital multiple renal cysts; N18.3 Chronic kidney disease, stage 3 (moderate); N32.9 Bladder disorder, unspecified; Z12.31 Encounter for screening mammogram for malignant neoplasm of breast

== ENCOUNTER → 2019-01-01 | Outpatient (CLI) | payer MEDICARE, MEDICAID ==
--- NOTE | 2019-01-01 13:27 | REP ---
BILATERAL SCREENING DIGITAL MAMMOGRAM WITH 3D TOMOSYNTHESIS: There are no palpable abnormalities or other breast complaints. The the patient states she has not had a clinical breast examination in over a year. The Tyrer-Cuzick Score is: 11.6% . Comparison is 11/26/2014. There are scattered areas of fibroglandular density. There is no dominant mass, micro calcific cluster or architectural distortion that would indicate malignancy. There are no additional findings on 3D tomosynthesiss. There is no change from the prior study. Impression: BIRADS/ACR category 1 mammogram. Negative. Recommendation: Routine annual screening mammography. This mammogram was interpreted with the aid of a FDA approved computer-aided detection system. A. Negative mammogram reports should not delay biopsy if a dominant or clinically suspicious mass is present. B. Not all breast cancers are identified by mammography or tomosynthesis. C. Adenosis and dense breasts may obscure an underlying neoplasm. Patient letter M1. Electronically Signed by Valentin Durand MD 01/01/2019 01:19 P
== END ==
LOC: M RAD 12:42
PROVIDERS: ATTEND Family Medicine
DX: Z12.31 Encounter for screening mammogram for malignant neoplasm of breast (principal)

== ENCOUNTER → 2019-01-02 | Outpatient (CLI) | payer MEDICARE, MEDICAID ==
[~2019-01-02] MED LIST changes: +ALBU0.63 INH; +LEXA1TAB PO; +LOSA25TA14 PO; +MOBI4TAB PO; +PROV108A INH; +SYMB16INH INH; +VENTAER INH
--- NOTE | 2019-01-02 12:10 | REP ---
Right upper quadrant sonography: History: Hepatomegaly. Comparison study: Comparison CT study March 18, 2018. Findings: Scanning through the right upper quadrant of the abdomen demonstrates a normal sized, thin-walled gallbladder without evidence of stone or polyp. Common bile duct is normal measuring 0.3 cm in greatest diameter. No focal liver lesion is seen. Liver size is normal, 13 cm in vertical span in the midclavicular line unchanged from the comparison CT. No pancreatic abnormality is observed. There is a 1.0 cm cyst in the right mid kidney. No other right renal abnormality is seen. There is no evidence of ascites. The right kidney measures 10.6 x 3.9 x 3.6 cm. Impression: Small right renal cyst, otherwise negative right upper quadrant sonography. Electronically Signed by Jacob Nieves MD 01/02/2019 10:04 A
== END ==
LOC: M RAD 08:05
PROVIDERS: ATTEND Nurse Practitioner Family
DX: R16.0 Hepatomegaly, not elsewhere classified (principal); N28.1 Cyst of kidney, acquired

== ENCOUNTER 2019-01-18 09:33 | Day surgery (SDC) | payer MEDICARE, MEDICAID ==
[~2019-01-18] VITALS: Ht 165.1 cm; Wt 59.8 kg
[2019-01-18] MEDS ORDERED: PROPOFOL 200 MG/20 ML VIAL As Ordered ONE ×2 (10:17→11:51)
[2019-01-18] MEDS ORDERED: LIDOCAINE 2% INJ 100 MG/5 ML SDV (FOR ANES.) As Ordered ONE (10:18)
[2019-01-18] MEDS: NS 1,000 ML IV ONE (10:30)
[2019-01-18] MEDS ORDERED: ALBUTEROL SULFATE 2.5 MG/0.5 ML INH NEB SOLN INH ONE (11:00)
[2019-01-18] MEDS ORDERED: fentaNYL 100 MCG/2 ML INJECTION (J3010) As Ordered ONE (11:17)
--- NOTE | 2019-01-18 11:45 | ROOR ---
Patient Name: Laquita Boss Procedure Date: 01/18/2019 11:21 AM Date of : 1970 Age: 48 Room: [facility] Gender: Female Note Status: Finalized Procedure: Upper GI endoscopy Indications: Heartburn, Weight loss Providers: Raphael SWEENEY MD Referring MD: Raphael QUINTANA MD Requesting Provider: Medicines: Monitored Anesthesia Care Complications: No immediate complications. Procedure: Pre-Anesthesia Assessment: - The heart rate, respiratory rate, oxygen saturations, blood pressure, adequacy of pulmonary ventilation, and response to care were monitored throughout the procedure. The Endoscope was introduced through the mouth, and advanced to the second part of duodenum. The upper GI endoscopy was accomplished without difficulty. The patient tolerated the procedure well. Findings: The esophagus was normal. The stomach was normal. The examined duodenum was normal. Biopsies for histology were taken with a cold forceps in the second portion of the duodenum and in the third portion of the duodenum for evaluation of celiac disease. Impression: - Normal esophagus. - Normal stomach. - Normal examined duodenum. - Biopsies were taken with a cold forceps for evaluation of celiac disease. Recommendation: - Await pathology results. - Perform a colonoscopy. Raphael Sweeney MD Raphael SWEENEY MD 01/18/2019 11:45:37 AM Electronically signed by Raphael SWEENEY MD Number of Addenda: 0 Note Initiated On: 01/18/2019 11:21 AM Estimated Blood Loss: Estimated blood loss: none.
[2019-01-18] MEDS ORDERED: PHENYLephrine HCL 500 MCG/5 ML (100MCG/ML) SYRINGE (J2370) As Ordered ONE (11:47)
--- NOTE | 2019-01-18 12:10 | ROOR ---
Patient Name: Laquita Boss Procedure Date: 01/18/2019 11:24 AM Date of : 1970 Age: 48 Room: [facility] Gender: Female Note Status: Finalized Procedure: Colonoscopy Indications: High risk colon cancer surveillance: Personal history of colonic polyps, Incidental - Diarrhea, Incidental - Weight loss Providers: Raphael SWEENEY MD Referring MD: Raphael QUINTANA MD Requesting Provider: Medicines: Monitored Anesthesia Care Complications: No immediate complications. Procedure: Pre-Anesthesia Assessment: - The heart rate, respiratory rate, oxygen saturations, blood pressure, adequacy of pulmonary ventilation, and response to care were monitored throughout the procedure. The Colonoscope was introduced through the anus and advanced to 10 cm into the ileum. The colonoscopy was performed without difficulty. The patient tolerated the procedure well. The quality of the bowel preparation was good. Findings: The perianal and digital rectal examinations were normal. A 6 mm polyp was found in the cecum. The polyp was sessile. The polyp was removed with a hot snare. Resection and retrieval were complete. Mild sigmoid diverticulosis and small internal hemorrhoids. The exam was otherwise normal throughout the examined colon. The terminal ileum appeared normal. Biopsies for histology were taken with a cold forceps from the entire colon for evaluation of microscopic colitis. Impression: - One 6 mm polyp in the cecum, removed with a hot snare. Resected and retrieved. - Mild sigmoid diverticulosis and small internal hemorrhoids. - The colon is otherwise normal. - The examined portion of the ileum is normal. - Biopsies were taken with a cold forceps from the entire colon for evaluation of microscopic colitis. Recommendation: - Telephone endoscopist for pathology results in 2 weeks. - If the pathology report reveals adenomatous tissue, then repeat the colonoscopy for surveillance in 3 - 5 years. Raphael Sweeney MD Raphael SWEENEY MD 01/18/2019 12:10:29 PM Electronically signed by Raphael SWEENEY MD Number of Addenda: 0 Note Initiated On: 01/18/2019 11:24 AM Estimated Blood Loss: Estimated blood loss: none.
[2019-01-18 12:42] VITALS: BP 119/73
== END 2019-01-18 12:46 | disposition home or self-care (01) ==
LOC: M OPP 09:33
PROVIDERS: ATTEND Internal Medicine Gastroenterology
DX: Z12.11 Encounter for screening for malignant neoplasm of colon (principal); Z86.010 Personal history of colon polyps; D12.0 Benign neoplasm of cecum; K57.30 Diverticulosis of large intestine without perforation or abscess without bleeding; K64.8 Other hemorrhoids; R12 Heartburn; R63.4 Abnormal weight loss; F17.210 Nicotine dependence, cigarettes, uncomplicated; Z79.899 Other long term (current) drug therapy
CPT/HCPCS: 43239; 45380; 45385; 88305; J2370; J3010

== ENCOUNTER → 2019-03-21 | Outpatient (CLI) | payer MEDICARE, MEDICAID ==
[~2019-03-21] MED LIST changes: -OMEP40CA2 PO; +OMEP40CA97 PO
--- NOTE | 2019-03-21 12:11 | REP ---
MRI right hip without contrast: History: Right hip pain. Joint pain. Status post right hip arthroplasty. Arthroplasty placed 2006. Comparison radiographs December 03, 2018. Technique: Metallic artifact reduction techniques were deployed. Despite this however, there is considerable metallic field susceptibility artifact emanating from the metallic components of the right hip arthroplasty. Axial, coronal and sagittal imaging planes were utilized with and without fat saturation. MRI findings: There is considerable metallic field susceptibility artifact emanating from the metallic components of the arthroplasty. Cortical and medullary bone signal intensity is normal in the remainder of the right and left pelvis and in the left hip. There is no evidence of avascular necrosis on the left. There is no evidence of significant joint effusion. No periarticular fluid collection is seen on either side. No intrapelvic mass or cyst is observed. No soft tissue mass is seen. Impression: Right hip arthroplasty. Metallic field susceptibility artifact. Otherwise negative. Electronically Signed by Jacob Nieves MD 03/21/2019 12:29 P
== END ==
LOC: M RAD 10:02
PROVIDERS: ATTEND Family Medicine
DX: M25.551 Pain in right hip (principal); Z96.641 Presence of right artificial hip joint

== ENCOUNTER → 2019-07-12 | Outpatient (CLI) | payer MEDICARE, MEDICAID ==
[~2019-07-12] MED LIST changes: +BUPR150T5 PO; +GABA-843 PO; +GASTROGRAFIN SOLUTION 30ML (Q9963) As Ordered ONE; +ISOVUE-370 76% 100ML VIAL (Q9967) As Ordered ONE; +LEVA1TAB2 PO; -MONT10TA2 PO; +MONT10TA4 PO; +TIZA4TAB4 PO
--- NOTE | 2019-07-12 12:58 | REPVR ---
PROCEDURE INFORMATION: Exam: CT Chest With Contrast Exam date and time: 07/12/2019 10:52 AM Age: 49 years old Clinical indication: Pain; Other: Night sweats; Additional info: Evaluate for occult malignancy, night sweats TECHNIQUE: Imaging protocol: Computed tomography of the chest with intravenous contrast. Coronal and sagittal reformats were created and reviewed. Radiation optimization: All CT scans at this facility use at least one of these dose optimization techniques: automated exposure control; mA and/or kV adjustment per patient size (includes targeted exams where dose is matched to clinical indication); or iterative reconstruction. Contrast material: ISOVUE 370; Contrast volume: 100 ml; Contrast route: IV; COMPARISON: CT Chest with contrast 01/18/2018 9:[address] Chest with contrast 02/07/2017 4:53:31 PM FINDINGS: Thyroid: Nonspecific left thyroid 6 mm nodule (series 301, image 4). Lungs: The trachea is unremarkable. New left upper lobe apical 2-3 mm focal subsegmental bronchial filling defect (series 304, image 24). Bilateral pulmonary hyperinflation. Mild bilateral upper lung predominant pulmonary emphysema is redemonstrated. The emphysema is mostly paraseptal and multiple bullae are present. Very mild bibasilar curvilinear atelectasis and/or scarring. Stable right lower lobe posterior basilar 3 mm solid nodule (series 304, image 84) compared through 02/07/2017, consistent with a benign etiology. Stable right lower lobe anterior basilar micronodule (less than 3 mm) (image 80) compared through 02/07/2017, consistent with a benign etiology. Stable right upper lobe micronodule (image 35) compared through 02/07/2017, consistent with a benign etiology. No pulmonary consolidation or edema. Pleural space: No pleural effusion, mass or calcification. No pneumothorax. Heart: Heart size is within normal limits. No pericardial effusion. Mild coronary arterial atherosclerotic calcification. Mediastinum: The esophagus is unremarkable. No mediastinal mass. Pulmonary arteries: The main pulmonary arterial trunk is not enlarged. Aorta: Moderate aortic atherosclerosis. No thoracic aortic aneurysm. Great vessels off aortic arch: Mild atherosclerotic noncalcified plaque of the aortic arch great vessels. Lymph nodes: No enlarged lymph nodes. Bones/joints: Healed left 4th rib fracture. No aggressive-appearing osseous lesion. Soft tissues: A 9 mm soft tissue nodule with a peripheral calcification of the right lower outer breast does not appear significantly changed in size compared to the 02/07/2017 CT, series 301, image 51. IMPRESSION: 1. New nonspecific 2-3 mm left upper lobe subsegmental bronchial filling defect probably represents minimal focal bronchial mucous plugging. An endobronchial soft tissue nodule is not excluded but is less likely. In this patient with history of smoking, consider follow-up chest CT in 6 months for further evaluation. 2. Nonspecific left thyroid 6 mm nodule. Please see comments. 3. A 9 mm soft tissue nodule of the right lower outer breast does not appear significantly changed in size compared to the 02/07/2017 CT. The finding is nonspecific on CT. Correlation with the patient's recent mammography is recommended. 4. Atherosclerosis. Coronary artery disease. 5. Please see the contemporaneously performed 07/12/[address] report for additional findings. COMMENTS: Consistent with the [employer]'s Incidental Findings Committee white paper (J Am Josselyn Radiol 2015): In patients aged 35 years and older with an incidental thyroid nodule equal to or greater than 1.[address], MRI or extrathyroidal US, further evaluation with dedicated thyroid US is recommended for patients with normal life expectancy and without comorbidities. For smaller nodules without suspicious features, no further evaluation or follow up is recommended. Electronically signed by: Ran Moore On 07/12/2019 12:58:13 PM
--- NOTE | 2019-07-12 13:28 | REPVR ---
PROCEDURE INFORMATION: Exam: CT Abdomen And Pelvis Without And With Contrast Exam date and time: 07/12/2019 10:52 AM Age: 49 years old Clinical indication: Pain; Other: Night sweats; Additional info: Evaluate for occult malignancy, night sweats TECHNIQUE: Imaging protocol: Computed tomography of the abdomen and pelvis without and with intravenous contrast. Coronal and sagittal reformats were created and reviewed. Radiation optimization: All CT scans at this facility use at least one of these dose optimization techniques: automated exposure control; mA and/or kV adjustment per patient size (includes targeted exams where dose is matched to clinical indication); or iterative reconstruction. Contrast material: ISOVUE 370; Contrast volume: 100 ml; Contrast route: IV; COMPARISON: CT ABD PELVIS W/O FOL BY WIT 06/29/2017 9:34:[address] ABD PELVIS W/O CONTRAST 03/18/2018 10:49 PM FINDINGS: Liver: There are a few unchanged subcentimeter hypoattenuating foci within the liver, consistent with cysts. There is focal fatty infiltration of the liver near the falciform ligament. Gallbladder and bile ducts: No intrahepatic or extrahepatic bile duct dilation. The gallbladder is unremarkable. Pancreas: Unremarkable. Spleen: Unchanged subcentimeter hypoattenuating lesions of the anterior spleen consistent with cysts. No splenomegaly. Adrenals: Unchanged mild diffuse left adrenal hypertrophy. The right adrenal gland is unremarkable. Kidneys and ureters: Horseshoe kidney redemonstrated. Multiple circumscribed homogeneous hypoattenuating simple renal cysts, the largest measuring 13 mm. No hydronephrosis. Nonobstructing right kidney upper pole 1-2 mm calculus. Mild diffuse bilateral perinephric fat stranding is decreased compared to 03/18/2018 and similar to 06/29/2017. No abnormal ureteral dilation. Stomach and bowel: No evidence of colonic inflammation or obstruction. No evidence of small bowel inflammation or obstruction. The stomach is unremarkable. Appendix: The appendix is visualized and has a normal appearance. Intraperitoneal space: No free intraperitoneal fluid. No pneumoperitoneum. Vasculature: Widespread atherosclerotic plaque. No abdominal aortic aneurysm. There is diffuse concentric wall thickening of the abdominal aorta and distal thoracic aorta that is mildly more pronounced than the prior contrast-enhanced examination. No high attenuation acute intramural aortic hematoma. Lymph nodes: There is mild interval enlargement of periaortic abdominal lymph nodes. Bladder: The urinary bladder is decompressed. Reproductive: The uterus and adenexa are unremarkable. Bones/joints: Streak artifact from the metallic right hip prosthesis obscures structures at the pelvis and right thigh. No aggressive-appearing osseous lesion. Soft tissues: Small fat-containing bilateral posterior diaphragmatic hernias. IMPRESSION: 1. Nonspecific mild diffuse wall thickening of the abdominal aorta and distal thoracic aorta. Clinical correlation for possible large vessel vasculitis is recommended. Alternatively, the findings may be secondary to progression of extensive atherosclerosis. 2. Nonspecific bilateral perinephric fat stranding is decreased compared to 03/18/2018 but is not resolved. Clinical correlation is needed to exclude urinary tract infection such as pyelonephritis. 3. Nonobstructing 1-2 mm right nephrolithiasis. Horseshoe kidney. 4. Please see the contemporaneously performed 07/12/[address] report for additional findings. COMMENTS: Consistent with the [employer]'s Incidental Findings Committee white paper (J Am Josselyn Radiol 2018): Any incidental cystic renal lesion classified in this report as too small to characterize or simple appearing is likely a benign cyst. No follow-up imaging is recommended for these lesions per consensus recommendations based on imaging criteria. Electronically signed by: Ran Moore On 07/12/2019 13:28:27 PM
== END ==
LOC: M RAD 08:57
PROVIDERS: ATTEND Internal Medicine Hematology & Oncology
DX: R91.8 Other nonspecific abnormal finding of lung field (principal); E04.1 Nontoxic single thyroid nodule; N63.13 Unspecified lump in the right breast, lower outer quadrant; I25.10 Atherosclerotic heart disease of native coronary artery without angina pectoris; R63.4 Abnormal weight loss; R61 Generalized hyperhidrosis
CPT/HCPCS: 71260; 74178; Q9963; Q9967

== ENCOUNTER → 2019-08-29 | Outpatient (CLI) | payer MEDICARE, MEDICAID ==
[~2019-08-29] MED LIST changes: -GASTROGRAFIN SOLUTION 30ML (Q9963) As Ordered ONE; -ISOVUE-370 76% 100ML VIAL (Q9967) As Ordered ONE
[2019-08-29 11:46] LABS: C REACTIVE PROTEIN QUANTITATIV 0.49 MG/DL (0.00-0.30)
[2019-08-30 11:31] LABS: HEPATITIS B SURFACE ANTIGEN NEGATIVE (NEGATIVE)
[2019-08-30 11:46] LABS: HEPATITIS B CORE ANTIBODY IGM NEGATIVE (NEGATIVE); HEPATITIS C VIRUS ABY INDEX 0.1 INDEX (<0.8)
[2019-08-30 11:50] LABS: HEPATITIS A ANTIBODY IGM NEGATIVE (NEGATIVE)
[2019-08-30 12:27] LABS: HIV 1&2 SCREEN CENTAUR NEGATIVE (NEGATIVE)
== END ==
LOC: M LAB 10:51
PROVIDERS: ATTEND Internal Medicine Hematology & Oncology
DX: R63.4 Abnormal weight loss (principal); R91.1 Solitary pulmonary nodule
CPT/HCPCS: 36415; 80053; 85027; 85652; 86038; 86140; 86609; 86617; 86644; 86645; 86666; 86705; 86709; 86803; 87340; 87389; 87497; 87798; G0463

== ENCOUNTER → 2019-09-19 | Outpatient (REF) | payer MEDICARE, MEDICAID | LOC: M SFHCWAGY 17:06 | PROVIDERS: ATTEND Nurse Practitioner Women's Health | DX: Z12.4 Encounter for screening for malignant neoplasm of cervix (principal); R87.618 Other abnormal cytological findings on specimens from cervix uteri | CPT/HCPCS: 87624; G0101; G0123 ==

== ENCOUNTER → 2019-10-15 | Outpatient (CLI) | payer MEDICARE, MEDICAID ==
[2019-10-15 14:28] LABS: ALBUMIN 3.5 GM/DL (3.2-5.2); ALT/SGPT 14 U/L (12-78); BILIRUBIN,TOTAL 0.3 MG/DL (0.2-1.0); BLOOD UREA NITROGEN 16 MG/DL (7-18); C REACTIVE PROTEIN QUANTITATIV 1.06 MG/DL (0.00-0.30); CALCIUM LEVEL 8.8 MG/DL (8.5-10.1); CARBON DIOXIDE LEVEL 28 MEQ/L (21-32); CHLORIDE LEVEL 110 MEQ/L (98-107); COMPLEMENT C3 82 MG/DL (90-180); COMPLEMENT C4 22 MG/DL (10-40); CPK CREATINE PHOSPHOKINASE 81 U/L (26-192); CREATININE FOR GFR 1.25 MG/DL (0.55-1.30); GLOMERULAR FILTRATION RATE 48.1 (>51); GLUCOSE, FASTING 91 MG/DL (70-100); POTASSIUM SERUM 4.7 MEQ/L (3.5-5.1); RHEUMATOID FACTOR QUANT < 10.0 IU/ML (<15.0); SODIUM LEVEL 141 MEQ/L (136-145); TOTAL PROTEIN 6.5 GM/DL (6.4-8.2)
[2019-10-15 14:37] LABS: CREATININE,RANDOM URINE 49.5 MG/DL; TOTAL PROTEIN,RANDOM URINE 8.9 MG/DL (0.0-12.0)
[2019-10-16 09:52] LABS: HEPATITIS B SURFACE ANTIGEN NEGATIVE (NEGATIVE)
[2019-10-16 10:21] LABS: HEPATITIS C VIRUS ABY INDEX 0.3 INDEX (<0.8)
[2019-10-16 10:23] LABS: HIV 1&2 SCREEN CENTAUR NEGATIVE (NEGATIVE)
[2019-10-17 16:48] LABS: ANA (HEP2) Negative (.); CYCLIC CITRULLINATED PEPTIDE 6 units (0-19); HEPATITIS B CORE ANTIBODY IGG Negative (Negative); SSA SJOGRENS A <0.2 AI (0.0-0.9); SSB SJOGRENS B 0.3 AI (0.0-0.9)
== END ==
LOC: M PLALAB 11:22
PROVIDERS: ATTEND Internal Medicine
DX: D72.820 Lymphocytosis (symptomatic) (principal); M25.50 Pain in unspecified joint; I77.9 Disorder of arteries and arterioles, unspecified; E85.0 Non-neuropathic heredofamilial amyloidosis
CPT/HCPCS: 36415; 80053; 82550; 82570; 82787; 84156; 85652; 86038; 86140; 86160; 86200; 86235; 86256; 86431; 86704; 86803; 87340; 87389; G0463

== ENCOUNTER → 2019-11-01 | Outpatient (CLI) | payer MEDICARE, MEDICAID ==
--- NOTE | 2019-11-01 13:03 | REPPI ---
PELVIS AND BILATERAL HIPS: AP view of the pelvis and AP and frogleg views of bilateral hips performed. Comparison made with prior plain films, 03/06/2019, N[place]. Total right hip prosthesis is unchanged in appearance and position. No abnormal lucency is seen surrounding the prosthetic components. There is no fracture or dislocation. Left hip joint appears relatively normal. Small calcification projecting above the prosthetic femoral neck is unchanged. IMPRESSION: Stable appearance of right hip prosthesis with no acute findings. Electronically Signed by Valentin Lozano MD 11/01/2019 03:19 P
--- NOTE | 2019-11-01 13:06 | REPPI ---
BILATERAL HAND SERIES: Four views of bilateral hands performed. No acute fracture or dislocation is seen. Small calcific density at the base of the right 2nd distal phalanx may represent a small old avulsion fracture. There may also be a small old avulsion fracture of the base of the left 2nd distal phalanx. There is very mild narrowing of the 2nd through 5th proximal distal interphalangeal joints bilaterally. IMPRESSION: Minor arthritic changes bilaterally. Electronically Signed by Valentin Lozano MD 11/01/2019 03:19 P
== END ==
LOC: M PLAIMG 09:43
PROVIDERS: ATTEND Internal Medicine
DX: M25.50 Pain in unspecified joint (principal); Q65.89 Other specified congenital deformities of hip
CPT/HCPCS: 73130; 73502; C9803; U0003

== ENCOUNTER → 2019-11-01 | Outpatient (CLI) | payer MEDICARE, MEDICAID | LOC: M LABSMTC 09:32 | PROVIDERS: ATTEND Anesthesiology | DX: Z11.59 Encounter for screening for other viral diseases (principal); Z03.89 Encounter for observation for other suspected diseases and conditions ruled out ==

== ENCOUNTER 2019-11-04 08:15 | Day surgery (SDC) | payer MEDICARE, MEDICAID ==
[~2019-11-04] VITALS: Ht 165.1 cm; Wt 60.2 kg
[~2019-11-04 08:15] MED LIST changes: -ASPI81TA85 PO; +ASPI81TA86 PO; +CIPRODEX OTIC SUSP 7.5ML As Ordered ONE; +LR 1,000 ML IV ONE
[2019-11-04] MEDS ORDERED: MIDAZOLAM INJ 2MG/2ML VIAL (J2250 PER 1MG) As Ordered ONE (08:54)
[2019-11-04] MEDS ORDERED: fentaNYL 100 MCG/2 ML INJECTION (J3010) As Ordered ONE (08:54)
[2019-11-04] MEDS ORDERED: LIDOCAINE 2% 100MG/5ML SDV (FOR ANES.) As Ordered ONE (08:54)
[2019-11-04] MEDS ORDERED: propofoL 200 MG/20 ML VIAL As Ordered ONE (08:54)
[2019-11-04] MEDS ORDERED: ONDANSETRON 4MG/2ML VIAL As Ordered ONE (09:11)
[2019-11-04] MEDS ORDERED: dexameTHASONE 4 MG/ML 1ML VIAL (J1100 PER 1MG) As Ordered ONE (09:11)
[2019-11-04] MEDS ORDERED: METOCLOPRAMIDE INJ 10MG/2ML VIAL (J2765 PER 1) As Ordered ONE (09:11)
[2019-11-04 10:00] VITALS: BP 126/68
--- NOTE | 2019-11-21 11:55 | RO ---
DATE OF PROCEDURE: 11/04/2019 PREOPERATIVE DIAGNOSIS: Chronic otitis media with effusion. POSTOPERATIVE DIAGNOSIS: Chronic otitis media with effusion. PROCEDURE: Bilateral myringotomy tubes with tympanostomy (T) tube placement. SURGEON: Dr. Karl Borges PUBLIC DEFENDER: ANESTHESIA: INDICATIONS: This is a 49-year-old who has been followed sometime now with conductive hearing loss secondary to a persistent right middle ear effusion and left middle ear negative pressure. The previously placed tubes had extruded, and her symptoms returned. DESCRIPTION OF PROCEDURE: Satisfactory mask anesthesia administered. The left ear examined and cleaned under the microscope. Area of tympanosclerosis noted inferiorly. Anterior inferior myringotomy made. A soft T-tube was easily inserted and positioned. It was noted that there was some retraction of the pars flaccida in the region of the short process of malleus, but no cholesteatoma was identified. Next, the right ear was examined and cleaned under the microscope. Anterior inferior myringotomy made. Serous fluid suctioned from the middle ear. A T-tube was inserted and positioned. Ciprodex drops instilled. She tolerated the procedure well and was sent to recovery in satisfactory condition. She will be seen back in the office in 1 week.
== END 2019-11-04 10:56 | disposition home or self-care (01) ==
LOC: M SDC 08:15
PROVIDERS: ATTEND Specialist
DX: H65.23 Chronic serous otitis media, bilateral (principal); H90.0 Conductive hearing loss, bilateral; I10 Essential (primary) hypertension; G43.909 Migraine, unspecified, not intractable, without status migrainosus; J43.9 Emphysema, unspecified; J44.9 Chronic obstructive pulmonary disease, unspecified; R91.8 Other nonspecific abnormal finding of lung field; F32.9 Major depressive disorder, single episode, unspecified; E78.49 Other hyperlipidemia; K21.9 Gastro-esophageal reflux disease without esophagitis; Z79.899 Other long term (current) drug therapy; F17.218 Nicotine dependence, cigarettes, with other nicotine-induced disorders
CPT/HCPCS: 69436; J1100; J2250; J2405; J2765; J3010

== ENCOUNTER → 2019-12-17 | Outpatient (REF) | payer MEDICARE, MEDICAID ==
[~2019-12-17] MED LIST changes: -CIPRODEX OTIC SUSP 7.5ML As Ordered ONE; -LR 1,000 ML IV ONE
[2020-01-19 15:29] LABS: BASO % 0.2 % (0.0-1.0); EOS # 0.2 10^3/uL (0.0-0.5); EOS % 1.4 % (0.0-3.0); HEMATOCRIT 40.3 % (36.0-47.0); LYMPH # 4.4 10^3/uL (1.5-5.0); LYMPH % 41.3 % (24.0-44.0); MEAN CORPUSCULAR HEMOGLOBIN 31.4 pg (27.0-33.0); MEAN CORPUSCULAR HGB CONC 32.3 g/dl (32.0-36.5); MEAN CORPUSCULAR VOLUME 97.3 fl (80.0-96.0); MONO # 0.9 10^3/uL (0.0-0.8); NEUTROPHILS # 5.2 10^3/uL (1.5-8.5); NEUTROPHILS % 48.7 % (36.0-66.0); PLATELET COUNT, AUTOMATED 307 10^3/uL (150-450); RED BLOOD COUNT 4.14 10^6/uL (4.00-5.40); WHITE BLOOD COUNT 10.7 10^3/uL (4.0-10.0)
[2020-01-20 06:29] LABS: APPEARANCE, URINE HAZY (CLEAR); BACTERIA, URINE AUTO NEGATIVE (NEGATIVE); BILIRUBIN, URINE AUTO NEGATIVE (NEGATIVE); BLOOD, URINE BLOOD NEGATIVE (NEGATIVE); COLOR, URINE YELLOW (YELLOW); GLUCOSE, URINE (UA) AUTO NEGATIVE (NEGATIVE); KETONE, URINE AUTO NEGATIVE (NEGATIVE); LEUKOCYTE ESTERASE, URINE AUTO NEGATIVE (NEGATIVE); NITRITE, URINE AUTO NEGATIVE (NEGATIVE); PROTEIN, URINE AUTO NEGATIVE (NEGATIVE); RBC, URINE AUTO 0 /HPF (0-3); SPECIFIC GRAVITY URINE AUTO 1.014 (1.002-1.035); SQUAMOUS EPITHELIAL CELL UR AU 1 /HPF (0-6); UROBILINOGEN, URINE AUTO 0.2 mg/dL (0.0-2.0); WBC, URINE AUTO 1 /HPF (0-3)
[2020-01-31 16:09] LABS: ALBUMIN 3.4 GM/DL (3.2-5.2); BILIRUBIN,TOTAL 0.4 MG/DL (0.2-1.0); CALCIUM LEVEL 8.6 MG/DL (8.5-10.1); CHOLESTEROL RISK RATIO 4.875 (<5); CREATININE FOR GFR 1.35 MG/DL (0.55-1.30); FREE T4 1.06 NG/DL (0.76-1.46); POTASSIUM SERUM 4.3 MEQ/L (3.5-5.1); THYROID STIMULATING HORMONE 2.25 uIU/ML (0.358-3.740); TOTAL 25(OH) VITAMIN D 32.1 NG/ML (30.0-100.0); TOTAL PROTEIN 6.6 GM/DL (6.4-8.2)
[2020-01-31 16:10] LABS: HEMOGLOBIN A1c 5.6 %
== END ==
LOC: M LAB REF 12:22
PROVIDERS: ATTEND Nurse Practitioner Family
DX: Z13.9 Encounter for screening, unspecified (principal); R07.89 Other chest pain; R00.2 Palpitations; R63.0 Anorexia; Z78.0 Asymptomatic menopausal state; K52.9 Noninfective gastroenteritis and colitis, unspecified; H53.9 Unspecified visual disturbance; Z72.0 Tobacco use; I10 Essential (primary) hypertension; F41.8 Other specified anxiety disorders; E55.9 Vitamin D deficiency, unspecified; E78.5 Hyperlipidemia, unspecified; Z79.51 Long term (current) use of inhaled steroids; Z79.899 Other long term (current) drug therapy

== ENCOUNTER → 2019-12-21 | Outpatient (CLI) | payer MEDICARE, MEDICAID ==
[2020-02-09 09:20] LABS: HEMATOCRIT 37.2 % (36.0-47.0); HEMOGLOBIN 12.1 g/dl (12.0-15.5); MEAN CORPUSCULAR HEMOGLOBIN 31.7 pg (27.0-33.0); MEAN CORPUSCULAR HGB CONC 32.5 g/dl (32.0-36.5); MEAN CORPUSCULAR VOLUME 97.4 fl (80.0-96.0); PLATELET COUNT, AUTOMATED 285 10^3/uL (150-450); RED BLOOD COUNT 3.82 10^6/uL (4.00-5.40); WHITE BLOOD COUNT 15.4 10^3/uL (4.0-10.0)
[2020-02-13 16:20] LABS: CALCIUM LEVEL 8.7 MG/DL (8.5-10.1); CHOLESTEROL RISK RATIO 3.631 (<5); CREATININE FOR GFR 1.34 MG/DL (0.55-1.30); GLOMERULAR FILTRATION RATE 44.4 (>51); POTASSIUM SERUM 4.2 MEQ/L (3.5-5.1)
== END ==
LOC: M LAB 13:45
PROVIDERS: ATTEND Internal Medicine Cardiovascular Disease
DX: I20.0 Unstable angina (principal)

== ENCOUNTER → 2019-12-23 | Outpatient (CLI) | payer MEDICARE, MEDICAID ==
--- NOTE | 2020-01-29 10:40 | REP ---
CT OF THE CHEST WITHOUT CONTRAST: HISTORY: Left upper lobe lung nodule. COMPARISON: Chest CT study from 07/12/19. A comparison chest CT from 01/18/18 is also reviewed. There is a comparison chest CT study from 02/07/17 as well. FINDINGS: The previous study from 07/12/19 showed a focal endobronchial filling defect in a subsegmental bronchus in the left upper lobe. This is no longer apparent and is compatible with prior study showing inspissated endobronchial secretions. No new pulmonary nodule is appreciated. There is a tiny stable 4 mm nodule in the right lower lobe on page 76 of 106 in series 201 of today's study. This is visible in retrospect and unchanged from the 01/2018 prior study. There is a granulomatous calcification in the right lower lobe, also unchanged. This is seen on page 81 of today's study. There is a small area of minimal linear fibrosis in the left upper lobe. Emphysematous changes are again noted. Some biapical bullae are seen, unchanged. Bibasilar linear fibrosis is seen. No new abnormality is noted in the upper abdomen. IMPRESSION: The recently identified left upper lobe endobronchial density is not seen today. Evidence of COPD. Otherwise, stable chest CT findings. MTDD
== END ==
LOC: M RAD 13:00
PROVIDERS: ATTEND Internal Medicine Hematology & Oncology
DX: R63.4 Abnormal weight loss (principal); J44.9 Chronic obstructive pulmonary disease, unspecified

== ENCOUNTER → 2020-01-30 | Outpatient (CLI) | payer MEDICARE, MEDICAID ==
[2020-01-30 14:03] LABS: BASO % 0.3 % (0.0-1.0); EOS # 0.1 10^3/uL (0.0-0.5); EOS % 0.4 % (0.0-3.0); HEMATOCRIT 39.5 % (36.0-47.0); HEMOGLOBIN 12.7 g/dl (12.0-15.5); LYMPH # 3.9 10^3/uL (1.5-5.0); LYMPH % 27.1 % (24.0-44.0); MEAN CORPUSCULAR HEMOGLOBIN 31.4 pg (27.0-33.0); MEAN CORPUSCULAR HGB CONC 32.2 g/dl (32.0-36.5); MEAN CORPUSCULAR VOLUME 97.8 fl (80.0-96.0); MONO # 0.9 10^3/uL (0.0-0.8); MONO % 6.4 % (0.0-5.0); NEUTROPHILS # 9.4 10^3/uL (1.5-8.5); NEUTROPHILS % 65.5 % (36.0-66.0); PLATELET COUNT, AUTOMATED 287 10^3/uL (150-450); RED BLOOD COUNT 4.04 10^6/uL (4.00-5.40); WHITE BLOOD COUNT 14.3 10^3/uL (4.0-10.0)
[2020-01-30 14:26] LABS: ALBUMIN 3.3 GM/DL (3.2-5.2); BILIRUBIN,TOTAL 0.5 MG/DL (0.2-1.0); C REACTIVE PROTEIN QUANTITATIV 0.63 MG/DL (0.00-0.30); CALCIUM LEVEL 9.2 MG/DL (8.5-10.1); CREATININE FOR GFR 1.4 MG/DL (0.55-1.30); GLOMERULAR FILTRATION RATE 42.2 (>51); POTASSIUM SERUM 3.8 MEQ/L (3.5-5.1); TOTAL PROTEIN 6.4 GM/DL (6.4-8.2)
[2020-01-30 14:52] LABS: ERYTHROCYTE SEDIMENTATION RATE 27 mm/hr (0-30)
== END ==
LOC: M LAB 12:27
PROVIDERS: ATTEND Internal Medicine
DX: M06.4 Inflammatory polyarthropathy (principal)

== ENCOUNTER → 2020-01-30 | Outpatient (CLI) | payer MEDICARE, MEDICAID ==
--- NOTE | 2020-02-06 08:06 | REP ---
CT CHEST WITHOUT CONTRAST HISTORY: Other nonspecific abnormal finding of lung field. COMPARISON: Chest CT studies are reviewed the most recent of which is from 12/23/2019. The most remote chest CT study is 02/26/2006. CT FINDINGS: The lungs are somewhat hyperinflated on digital ski patrol officer radiograph. Emphysematous changes are seen particularly in the upper lobes where there are peripheral bullae as before, as well as emphysematous changes. There is a stable 4 mm nodule in the right left lower lobe on Page 80 of 108 in Series 201 of todays study unchanged from 07/2019 and 12/2019 prior studies. This is consistent with a granulomatous nodule. It is unchanged from the 01/18/2018 study as well. There is a tiny 3 mm stable nodule in the anterior aspect of the right lower lobe. There is linear plate-like atelectasis in the right middle lobe today mild in degree. No new nodule or lung mass is seen. No endobronchial lesion is appreciated. There is some vascular calcification in the left coronary artery. No hilar mass or mediastinal adenopathy is seen. The adrenals are somewhat thickened consistent with hypertrophy. This is unchanged. IMPRESSION: Evidence of chronic obstructive pulmonary disease (COPD) and emphysematous change. Stable chest CT findings. MTDD
== END ==
LOC: M RAD 12:58
PROVIDERS: ATTEND Internal Medicine Pulmonary Disease
DX: J98.11 Atelectasis (principal); R91.8 Other nonspecific abnormal finding of lung field; M06.4 Inflammatory polyarthropathy

== ENCOUNTER → 2020-02-04 | Outpatient (REF) | payer MEDICARE, MEDICAID | LOC: M LAB REF 17:12 | PROVIDERS: ATTEND Internal Medicine Pulmonary Disease | DX: J44.9 Chronic obstructive pulmonary disease, unspecified (principal) ==

== ENCOUNTER → 2020-03-20 | Outpatient (CLI) | payer MEDICARE, MEDICAID | LOC: M LABSMTC 12:43 | PROVIDERS: ATTEND Family Medicine | DX: Z20.828 Contact with and (suspected) exposure to other viral communicable diseases (principal) ==

== ENCOUNTER → 2020-04-10 | Outpatient (CLI) | payer MEDICARE, MEDICAID ==
[~2020-04-10] MED LIST changes: -MONT10TA4 PO; +MONT5TAB2 PO
--- NOTE | 2020-04-10 12:37 | REP ---
INDICATION: COUGH. COMPARISON: Portable exam of 12/30/2016 and two view exam of 01/11/2017 FINDINGS: There is slight right CP angle blunting which represents a change from the prior exam. The cardiomediastinal silhouette is unchanged for the heart is not enlarged. Left pleural angle is sharp. The lung bernabe are otherwise clear. The imaged osseous structures are stable and intact. IMPRESSION: Right CP angle blunting of uncertain etiology. Since the patient has a chronic cough I would recommend follow-up with CT scan of the chest. <Electronically signed by Olman Bautista > 04/10/20 [id number]
== END ==
LOC: M RAD 11:48
PROVIDERS: ATTEND Physician Assistant
DX: R05 Cough (principal)

== ENCOUNTER → 2020-04-23 | Outpatient (REF) | payer MEDICARE, MEDICAID ==
[2020-04-23 17:46] LABS: BASO # 0.1 10^3/uL (0.0-0.2); BASO % 0.4 % (0.0-1.0); EOS # 0.1 10^3/uL (0.0-0.5); EOS % 0.9 % (0.0-3.0); HEMATOCRIT 39.4 % (36.0-47.0); HEMOGLOBIN 12.3 g/dl (12.0-15.5); LYMPH # 5.4 10^3/uL (1.5-5.0); LYMPH % 46.1 % (24.0-44.0); MEAN CORPUSCULAR HEMOGLOBIN 30.9 pg (27.0-33.0); MEAN CORPUSCULAR HGB CONC 31.2 g/dl (32.0-36.5); MONO # 0.9 10^3/uL (0.0-0.8); MONO % 7.2 % (0.0-5.0); NEUTROPHILS # 5.3 10^3/uL (1.5-8.5); NEUTROPHILS % 45.1 % (36.0-66.0); PLATELET COUNT, AUTOMATED 411 10^3/uL (150-450); RED BLOOD COUNT 3.98 10^6/uL (4.00-5.40)
[2020-04-23 17:49] LABS: WHITE BLOOD COUNT 11.8 10^3/uL (4.0-10.0)
[2020-04-23 18:00] LABS: ALBUMIN 3.3 GM/DL (3.2-5.2); BILIRUBIN,TOTAL 0.3 MG/DL (0.2-1.0); CALCIUM LEVEL 8.9 MG/DL (8.5-10.1); CHOLESTEROL RISK RATIO 4.272 (<5); CREATININE FOR GFR 1.41 MG/DL (0.55-1.30); FREE T4 1.29 NG/DL (0.76-1.46); GLOMERULAR FILTRATION RATE 41.7 (>51); THYROID STIMULATING HORMONE 1.61 uIU/ML (0.358-3.740); TOTAL PROTEIN 6.7 GM/DL (6.4-8.2)
== END ==
LOC: M LAB REF 16:30
PROVIDERS: ATTEND Physician Assistant
DX: N18.9 Chronic kidney disease, unspecified (principal); R63.4 Abnormal weight loss; Z13.220 Encounter for screening for lipoid disorders

== ENCOUNTER → 2020-04-27 | Outpatient (CLI) | payer MEDICARE, MEDICAID ==
[~2020-04-27] MED LIST changes: +ISOVUE-370 76% 100ML VIAL As Ordered ONE
--- NOTE | 2020-04-27 08:53 | REP ---
INDICATION: ABD IMAGING RADIOLOGIC ? PNEUMONAI VS SOLITARY NOD COMPARISON: 01/30/2020. TECHNIQUE: Axial contrast enhanced images from the thoracic inlet to the upper abdomen with coronal and sagittal reformations using 75 ml Isovue 370 intravenous contrast material. This CT examination was performed using the following dose reduction techniques: Automated exposure control, adjustment of mA and/or kv according to the patient's size, and use of iterative reconstruction technique. FINDINGS: Moderate emphysematous changes are appreciated. 4 mm noncalcified nodule in the medial right lower lobe (image 86) remains stable as well as 3 mm nodule in the right lower lobe. Previously noted right middle lobe atelectasis resolved. Current examination demonstrates mild left basilar atelectasis and minimal medial right basilar scarring. No effusion. No pneumothorax. Tracheobronchial tree is patent. Mediastinum demonstrates relatively normal thoracic aorta, pulmonary vasculature, and heart/pericardium. No significant adenopathy. Visualized thyroid gland appears normal. Musculoskeletal structures are intact. IMPRESSION: 1. Moderate emphysematous changes and minimal basilar scarring. 2. Stable nodules unchanged compared through 2018. No new significant nodule or mass lesion. 3. Minimal acute left basilar atelectasis. <Electronically signed by Link Law > 04/27/20 [id number]
== END ==
LOC: M RAD 08:05
PROVIDERS: ATTEND Physician Assistant
DX: R91.8 Other nonspecific abnormal finding of lung field (principal); J98.11 Atelectasis
CPT/HCPCS: 71260; Q9967

== ENCOUNTER → 2020-06-08 | Outpatient (REF) | payer MEDICARE, MEDICAID ==
[~2020-06-08] MED LIST changes: +GABA-282 PO; -GABA-843 PO; -ISOVUE-370 76% 100ML VIAL As Ordered ONE
== END ==
LOC: M LAB REF 16:38
PROVIDERS: ATTEND Internal Medicine Pulmonary Disease
DX: J44.9 Chronic obstructive pulmonary disease, unspecified (principal)

== ENCOUNTER → 2020-09-11 | Outpatient (CLI) | payer MEDICARE, MEDICAID ==
[~2020-09-11] MED LIST changes: -LISI-542 PO; +LISI-898 PO; +MONT10TA10 PO; -MONT5TAB2 PO
[2020-09-11 12:34] LABS: FOLATE 9.1 NG/ML; MAGNESIUM LEVEL 2.4 MG/DL (1.8-2.4); PERCENT SATURATION 13.2 % (13.2-45.0)
== END ==
LOC: M LAB 10:39
PROVIDERS: ATTEND Physician Assistant
DX: R20.2 Paresthesia of skin (principal); I10 Essential (primary) hypertension; J44.9 Chronic obstructive pulmonary disease, unspecified; Z79.899 Other long term (current) drug therapy

== ENCOUNTER → 2020-09-24 | Outpatient (CLI) | payer MEDICARE, MEDICAID ==
--- NOTE | 2020-09-25 07:08 | REP ---
INDICATION: HTN CHRONIC KIDNEY DISEASE COMPARISON: 01/01/2019 TECHNIQUE: Real time mckeon scale ultrasound examination using curved array transducer. 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 Right moiety measures 9.7 x 4.4 x 3.6 cm without hydronephrosis and demonstrates increased central sinus fat along with 9 mm midpole cyst and 2.0 cm lower pole cyst as well as small non obstructing nephroliths. Left moiety measures 8.5 x 3.0 x 3.1 cm without hydronephrosis and demonstrates increased central sinus fat. The 9 mm previously identified left upper pole cyst is not visualized on current exam. 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 Right-sided benign appearing cysts and nonobstructing calculus again noted. <Electronically signed by Link Law > 09/25/20 [id number]
== END ==
LOC: M RAD 13:55
PROVIDERS: ATTEND Internal Medicine Nephrology
DX: I12.9 Hypertensive chronic kidney disease with stage 1 through stage 4 chronic kidney disease, or unspecified chronic kidney disease (principal); N18.31 Chronic kidney disease, stage 3a; E85.2 Heredofamilial amyloidosis, unspecified; N28.1 Cyst of kidney, acquired; N20.0 Calculus of kidney

== ENCOUNTER → 2020-10-20 | Outpatient (REF) | payer MEDICARE, MEDICAID | LOC: M LAB REF 16:51 | PROVIDERS: ATTEND Internal Medicine Pulmonary Disease | DX: J44.9 Chronic obstructive pulmonary disease, unspecified (principal) ==

== ENCOUNTER → 2020-11-08 | Outpatient (CLI) | payer MEDICARE, MEDICAID ==
[~2020-11-08] MED LIST changes: +OMEP40CA4 PO; -OMEP40CA97 PO
[2020-11-08 14:10] LABS: HEMATOCRIT 41.1 % (36.0-47.0); HEMOGLOBIN 13.2 g/dl (12.0-15.5); MEAN CORPUSCULAR HEMOGLOBIN 31.5 pg (27.0-33.0); MEAN CORPUSCULAR HGB CONC 32.1 g/dl (32.0-36.5); MEAN CORPUSCULAR VOLUME 98.1 fl (80.0-96.0); PLATELET COUNT, AUTOMATED 292 10^3/uL (150-450); RED BLOOD COUNT 4.19 10^6/uL (4.00-5.40); WHITE BLOOD COUNT 10.9 10^3/uL (4.0-10.0)
[2020-11-08 14:29] LABS: ERYTHROCYTE SEDIMENTATION RATE 23 mm/hr (0-30)
[2020-11-08 14:44] LABS: ALBUMIN 3.4 GM/DL (3.2-5.2); BILIRUBIN,TOTAL 0.3 MG/DL (0.2-1.0); C REACTIVE PROTEIN QUANTITATIV 0.44 MG/DL (0.00-0.30); CALCIUM LEVEL 8.4 MG/DL (8.5-10.1); CREATININE FOR GFR 1.25 MG/DL (0.55-1.30); GLOMERULAR FILTRATION RATE 47.9 (>51); POTASSIUM SERUM 4.5 MEQ/L (3.5-5.1); TOTAL PROTEIN 6.6 GM/DL (6.4-8.2)
[2020-11-08 15:01] LABS: NEUTROPHILS 47 % (28-66)
[2020-11-08 15:02] LABS: MONOCYTES 1 % (0-5)
[2020-11-08 15:03] LABS: ATYPICAL LYMPH 10 % (0-5); LYMPHOCYTES 42 % (16-44); PLATELET ESTIMATE NORMAL (NORMAL)
== END ==
LOC: M LAB 13:45
PROVIDERS: ATTEND Internal Medicine Rheumatology
DX: M06.4 Inflammatory polyarthropathy (principal)

== ENCOUNTER → 2020-12-21 | Outpatient (REF) | payer MEDICARE, MEDICAID | LOC: M LAB REF 18:28 | PROVIDERS: ATTEND Internal Medicine Nephrology | DX: N18.31 Chronic kidney disease, stage 3a (principal) ==

== ENCOUNTER → 2021-01-12 | Outpatient (CLI) | payer MEDICARE, MEDICAID ==
--- NOTE | 2021-01-12 10:46 | REPMRS ---
Patient History The patient states she had a clinical breast exam in January 2021. Family history of unknown cancer at age 47 in mother, premenopausal breast cancer under age 50 in maternal aunt, unknown cancer under age 50 in maternal aunt, breast cancer at age 40 in maternal cousin. Benign stereotatic breast biopsy of the right breast, January 21, 2008. Patient states no breast complaints today. Patient has signed MRS History Sheet. Digital Woman Screen Mammo: January 12, 2021 - Exam #: [id number] Bilateral CC and MLO view(s) were taken. Technologist: Leela Tom, Technologist Prior study comparison: January 01, 2019, bilateral digital mammo screening bilat, performed at [facility]. November 26, 2014, bilateral digital mammo screening bilat, performed at [facility]. FINDINGS: The breast tissue is heterogeneously dense. This may lower the sensitivity of mammography. Screening. Digital screening (2D) mammography was performed bilaterally in the CC and MLO projections. Additionally, breast tomosynthesis (3D mammography) was performed bilaterally in the CC and MLO projections. Todays exam was compared to the prior exam/exams. By history, the patient has no complaints of a palpable breast abnormality or other significant breast complaints. The breasts are unchanged in size and shape. Once again, dense heterogenous fibroglandular elements are seen bilaterally in a stable appearing pattern but to such a degree that the sensitivity of the mammogram in detecting cancer is decreased.There are no treva-soft tissue densities or spiculated masses. There is no internal architectural distortion. There are no suspicious treva-calcific clusters. Skin thickening or nipple retraction is not present. IMPRESSION: BI-RADS Category 2- Benign Findings. There is no evidence of malignant alteration of the breasts. Followup examination recommended in one year. The Volpara volumetric breast density category is C, the breasts are heterogenously dense which may obscure small masses. This mammogram was read with the assistance of [employer],an FDA approved computer aided detection system for mammography. The lifetime Tyrer-Cuzick score is 11.2 % Due to the density of the breasts or Tyrer Cuzick score of 20% or greater, MRI/whole breast screening ultrasound is warranted. Negative x-ray reports should not delay surgical consultation if a dominant or clinically suspicious mass is present. Not all breast cancers can be identified by mammography. Therefore, we recommend that you continue to perform regular breast self-examination and physical examination and then promptly contact your physician of any concerns or changes. Adenosis and dense breasts may obscure an underlying neoplasm. Assessment: BI-RADS/ACR category 2 mammogram. Benign Findings. Recommendation Routine screening mammogram of both breasts in 1 year. Electronically Signed By: Olman Bautista DO 01/12/21 [id number]
== END ==
LOC: M WHC 09:11
PROVIDERS: ATTEND Nurse Practitioner Women's Health
DX: Z01.419 Encounter for gynecological examination (general) (routine) without abnormal findings (principal); Z12.31 Encounter for screening mammogram for malignant neoplasm of breast; Z80.8 Family history of malignant neoplasm of other organs or systems; Z86.018 Personal history of other benign neoplasm
CPT/HCPCS: 77063; 77067; G0101

== ENCOUNTER → 2021-03-12 | Outpatient (CLI) | payer MEDICARE, MEDICAID ==
[2021-03-12 11:40] LABS: BASO % 0.3 % (0.0-1.0); EOS # 0.1 10^3/uL (0.0-0.5); HEMATOCRIT 37.3 % (36.0-47.0); LYMPH # 3.2 10^3/uL (1.5-5.0); LYMPH % 27.6 % (24.0-44.0); MEAN CORPUSCULAR HEMOGLOBIN 33.1 pg (27.0-33.0); MEAN CORPUSCULAR HGB CONC 32.2 g/dl (32.0-36.5); MEAN CORPUSCULAR VOLUME 102.8 fl (80.0-96.0); NEUTROPHILS % 61.7 % (36.0-66.0); PLATELET COUNT, AUTOMATED 258 10^3/uL (150-450); RED BLOOD COUNT 3.63 10^6/uL (4.00-5.40); WHITE BLOOD COUNT 11.4 10^3/uL (4.0-10.0)
[2021-03-12 11:59] LABS: ALBUMIN 3.3 GM/DL (3.2-5.2); BILIRUBIN,TOTAL 0.3 MG/DL (0.2-1.0); CALCIUM LEVEL 8.8 MG/DL (8.5-10.1); CREATININE FOR GFR 1.48 MG/DL (0.55-1.30); GLOMERULAR FILTRATION RATE 39.4 (>51); POTASSIUM SERUM 4.6 MEQ/L (3.5-5.1); TOTAL PROTEIN 6.4 GM/DL (6.4-8.2)
== END ==
LOC: M LAB 10:51
PROVIDERS: ATTEND Specialist
DX: C91.50 Adult T-cell lymphoma/leukemia (HTLV-1-associated) not having achieved remission (principal)

== ENCOUNTER → 2021-05-25 | Outpatient (CLI) | payer MEDICARE, MEDICAID ==
[~2021-05-25] MED LIST changes: -DICY20TA11 PO; +DICY20TA20 PO; -LISI-898 PO; +LISI5TAB11 PO; +LOSA25TA13 PO; -LOSA25TA14 PO; -MONT10TA10 PO; +MONT10TA97 PO; +TIZA10TA PO; -TIZA4TAB4 PO
[2021-05-25 18:07] LABS: BASO % 0.5 % (0.0-1.0); EOS # 0.1 10^3/uL (0.0-0.5); EOS % 1.4 % (0.0-3.0); HEMATOCRIT 32.7 % (36.0-47.0); HEMOGLOBIN 10.6 g/dl (12.0-15.5); LYMPH # 2.8 10^3/uL (1.5-5.0); MEAN CORPUSCULAR HEMOGLOBIN 33.5 pg (27.0-33.0); MEAN CORPUSCULAR HGB CONC 32.4 g/dl (32.0-36.5); MEAN CORPUSCULAR VOLUME 103.5 fl (80.0-96.0); MONO # 0.7 10^3/uL (0.0-0.8); NEUTROPHILS # 2.9 10^3/uL (1.5-8.5); NEUTROPHILS % 44.6 % (36.0-66.0); PLATELET COUNT, AUTOMATED 282 10^3/uL (150-450); RED BLOOD COUNT 3.16 10^6/uL (4.00-5.40); WHITE BLOOD COUNT 6.5 10^3/uL (4.0-10.0)
[2021-05-25 18:24] LABS: BILIRUBIN,TOTAL 0.2 MG/DL (0.2-1.0); C REACTIVE PROTEIN QUANTITATIV 0.56 MG/DL (0.00-0.30); CALCIUM LEVEL 8.6 MG/DL (8.5-10.1); CREATININE FOR GFR 1.33 MG/DL (0.55-1.30); GLOMERULAR FILTRATION RATE 44.4 (>51); POTASSIUM SERUM 4.6 MEQ/L (3.5-5.1)
[2021-05-25 19:09] LABS: ERYTHROCYTE SEDIMENTATION RATE 37 mm/hr (0-30)
== END ==
LOC: M LAB 17:07
PROVIDERS: ATTEND Internal Medicine Rheumatology
DX: M06.4 Inflammatory polyarthropathy (principal)

== ENCOUNTER → 2021-06-02 | Outpatient (CLI) | payer MEDICARE, MEDICAID | LOC: M SOG 13:53 | PROVIDERS: ATTEND Orthopaedic Surgery Adult Reconstructive Orthopaedic Surgery | DX: M16.12 Unilateral primary osteoarthritis, left hip (principal) ==

== ENCOUNTER → 2021-06-03 | Outpatient (CLI) | payer MEDICARE, MEDICAID | LOC: M RAD 10:12 | PROVIDERS: ATTEND Specialist | DX: C91.50 Adult T-cell lymphoma/leukemia (HTLV-1-associated) not having achieved remission (principal) ==

== ENCOUNTER → 2021-07-06 | Outpatient (CLI) | payer MEDICARE, MEDICAID ==
[~2021-07-06] MED LIST changes: +GABA600T4 PO; +HYDR-4429 PO; +LACT10SO3 PO; +ONDA4TAB6 PO
[2021-07-06 17:08] LABS: HEMATOCRIT 32.7 % (36.0-47.0); HEMOGLOBIN 10.6 g/dl (12.0-15.5); MEAN CORPUSCULAR HEMOGLOBIN 32.4 pg (27.0-33.0); MEAN CORPUSCULAR HGB CONC 32.4 g/dl (32.0-36.5); PLATELET COUNT, AUTOMATED 355 10^3/uL (150-450); RED BLOOD COUNT 3.27 10^6/uL (4.00-5.40); WHITE BLOOD COUNT 11.3 10^3/uL (4.0-10.0)
[2021-07-06 17:50] LABS: ALBUMIN 2.5 GM/DL (3.2-5.2); ALT/SGPT 25 U/L (12-78); AMYLASE 40 U/L (25-115); BILIRUBIN,DIRECT 0.6 MG/DL (0.0-0.2); BILIRUBIN,TOTAL 0.9 MG/DL (0.2-1.0); BLOOD UREA NITROGEN 24 MG/DL (7-18); CALCIUM LEVEL 8.8 MG/DL (8.5-10.1); CARBON DIOXIDE LEVEL 26 MEQ/L (21-32); CHLORIDE LEVEL 106 MEQ/L (98-107); CREATININE FOR GFR 1.55 MG/DL (0.55-1.30); GLOMERULAR FILTRATION RATE 37.2 (>51); GLUCOSE, FASTING 78 MG/DL (70-100); LIPASE 190 U/L (73-393); POTASSIUM SERUM 4.8 MEQ/L (3.5-5.1); SODIUM LEVEL 138 MEQ/L (136-145); TOTAL PROTEIN 6.2 GM/DL (6.4-8.2)
[2021-07-06 18:23] LABS: HEPATITIS B SURFACE ANTIBODY POSITIVE (POSITIVE)
[2021-07-07 15:01] LABS: HEPATITIS B SURFACE ANTIGEN NEGATIVE (NEGATIVE)
== END ==
LOC: M PLALAB 15:03
PROVIDERS: ATTEND Advanced Practice Midwife
DX: R10.9 Unspecified abdominal pain (principal); N95.2 Postmenopausal atrophic vaginitis

== ENCOUNTER 2021-07-12 12:02 | Emergency (ER) | payer MEDICARE, MEDICAID ==
[~2021-07-12] VITALS: Ht 165.1 cm; Wt 58.3 kg
[~2021-07-12 12:02] MED LIST changes: -GABA600T4 PO; -HYDR-4429 PO; -LACT10SO3 PO; -ONDA4TAB6 PO
[2021-07-12] MEDS ORDERED: GABA600T4 PO (12:09)
[2021-07-12 13:11] LABS: BASO % 0.4 % (0.0-1.0); EOS % 0.3 % (0.0-3.0); HEMATOCRIT 33.3 % (36.0-47.0); HEMOGLOBIN 10.8 g/dl (12.0-15.5); LYMPH # 1.6 10^3/uL (1.5-5.0); LYMPH % 22.5 % (24.0-44.0); MEAN CORPUSCULAR HGB CONC 32.4 g/dl (32.0-36.5); MEAN CORPUSCULAR VOLUME 98.5 fl (80.0-96.0); MONO # 0.6 10^3/uL (0.0-0.8); NEUTROPHILS # 4.7 10^3/uL (1.5-8.5); NEUTROPHILS % 66.7 % (36.0-66.0); PLATELET COUNT, AUTOMATED 420 10^3/uL (150-450); RED BLOOD COUNT 3.38 10^6/uL (4.00-5.40)
[2021-07-12 13:42] LABS: ALBUMIN 2.4 GM/DL (3.2-5.2); BILIRUBIN,DIRECT 0.8 MG/DL (0.0-0.2); BILIRUBIN,TOTAL 1.3 MG/DL (0.2-1.0); CALCIUM LEVEL 8.8 MG/DL (8.5-10.1); CREATININE FOR GFR 1.35 MG/DL (0.55-1.30); GLOMERULAR FILTRATION RATE 43.7 (>51); POTASSIUM SERUM 5.2 MEQ/L (3.5-5.1)
[2021-07-12] MEDS ORDERED: ONDANSETRON 4MG/2ML VIAL IV ONE (15:15)
[2021-07-12] MEDS ORDERED: NS 1,000 ML IV ONE (15:15)
[2021-07-12] MEDS ORDERED: LACTULOSE 20 GM/30 ML SYRUP UD PO ONE (17:25)
[2021-07-12] MEDS ORDERED: ONDA4TAB6 PO (17:29)
[2021-07-12 17:37] VITALS: BP 166/83
== END 2021-07-12 18:36 | disposition home or self-care (01) ==
LOC: M ED 12:02
DX: K76.89 Other specified diseases of liver (principal); R11.2 Nausea with vomiting, unspecified; N18.9 Chronic kidney disease, unspecified; K58.9 Irritable bowel syndrome, unspecified; J44.9 Chronic obstructive pulmonary disease, unspecified
CPT/HCPCS: 76705; 80048; 80076; 81001; 82140; 83690; 85025; 96374; 99284; J2405

== ENCOUNTER → 2021-07-26 | Outpatient (CLI) | payer MEDICARE, MEDICAID ==
[~2021-07-26] MED LIST changes: +GABA600T4 PO; +HYDR-4429 PO; +LACT10SO3 PO; +ONDA4TAB6 PO
== END ==
LOC: M RAD 09:35
PROVIDERS: ATTEND Specialist
DX: C78.7 Secondary malignant neoplasm of liver and intrahepatic bile duct (principal)

== ENCOUNTER → 2021-08-04 | Outpatient (CLI) | payer MEDICARE, MEDICAID ==
[~2021-08-04] MED LIST changes: +LIDOCAINE 1% MDV 20ML VIAL As Ordered ONE
[2021-08-04 12:00] VITALS: BP 122/72
== END ==
LOC: M IRPRO 08:52
PROVIDERS: ATTEND Specialist
DX: C78.7 Secondary malignant neoplasm of liver and intrahepatic bile duct (principal)

== ENCOUNTER → 2021-08-06 | Outpatient (CLI) | payer MEDICARE, MEDICAID ==
[~2021-08-06] MED LIST changes: -LIDOCAINE 1% MDV 20ML VIAL As Ordered ONE
== END ==
LOC: M RADPRO 06:20
PROVIDERS: ATTEND Orthopaedic Surgery Adult Reconstructive Orthopaedic Surgery
DX: C79.51 Secondary malignant neoplasm of bone (principal); R93.7 Abnormal findings on diagnostic imaging of other parts of musculoskeletal system; Z96.651 Presence of right artificial knee joint; Z12.2 Encounter for screening for malignant neoplasm of respiratory organs; F17.218 Nicotine dependence, cigarettes, with other nicotine-induced disorders
CPT/HCPCS: 27093; 71271; 73723; 77002; A9576; Q9967

== ENCOUNTER → 2021-08-06 | Outpatient (CLI) | payer MEDICARE, MEDICAID ==
[~2021-08-06] MED LIST changes: +ISOVUE-300 61% 50ML VIAL As Ordered ONE; +LIDOCAINE 1% MDV 20ML VIAL As Ordered ONE; +PROHANCE 279.3MG/ML 5ML VIAL As Ordered ONE
== END ==
LOC: M RAD 06:26
PROVIDERS: ATTEND Internal Medicine Pulmonary Disease
DX: Z12.2 Encounter for screening for malignant neoplasm of respiratory organs (principal); F17.218 Nicotine dependence, cigarettes, with other nicotine-induced disorders